=== PATIENT | male | born 1950 | race Two or more races ===

== ENCOUNTER 2025-01-18 20:52 | Inpatient (IN) | payer MEDICARE, OTHER ==
[~2025-01-18] VITALS: Ht 162.6 cm; Wt 69.9 kg
--- NOTE | 2025-01-18 21:35 | DVH ---
CLINICAL HISTORY: sob TECHNIQUE: Single view of the chest was obtained. COMPARISON: None FINDINGS: The heart size is normal. There is diffuse interstitial thickening throughout both lungs. IMPRESSION: Diffuse interstitial thickening throughout both lungs, likely at least in part representing fibrosis. Superimposed vascular congestion or other processes are not excluded.
--- NOTE | 2025-01-18 21:50 | ED.PDOC ---
History of Present Illness HPI Comments HPI: 74 y/o M, with PMhx of HTN, HLD, and colon cancer presents to the ED for CC of abdominal pain. Patient states, that he has been experiencing worsening abdominal pain and distension which has now caused him to develop symptoms of shortness of breath onset, [id number]. Patient reports, that abdominal distension is causing pressure onto his chest. Patient denies chest pain, palpations, nausea, vomiting, or diarrhea. No other symptoms or modifying factors are present at this time. Initial Vitals BP: HR: RR: O2: Temp: Past Medical History: HTN, COLON CANCER, HLD Past Surgical History: exploratory laparotomy Social History: Denies ETOH, smoking, and drug use. Medications: DENIES Allergies: JULIO wright: Chronic abdominal bloating, shortness of breath HPI: Poor Historian. REVIEW OF SYSTEMS: CONSTITUTIONAL: Denies acute: fever, diaphoresis, chills, generalized weakness. HEAD: Denies acute: headache, photophobia Eyes: Denies acute: Double vision, vision loss, eye pain, eye discharge. EARS: Denies acute: tinnitus, hearing loss, ear discharge, ear pain, THROAT: Denies acute: sore throat, swelling, difficulty swallowing , pain with swallowing, change in voice. NECK: Denies acute: neck pain, neck swelling, stiff neck. HEART: Denies acute : chest pain, palpitations, LUNGS: Denies acute: , wheezing, cough, hemoptysis ABDOMEN: Denies acute: abdominal pain, Nausea, Vomiting, diarrhea, melena , hematemesis, hematochezia SKIN: Denies acute: rash, redness, lesions, itchiness. EXTREMITIES: Denies acute: calf pain, numbness, tingling, weakness, denies pain in extremity. Denies acute: Low back pain. Neuro: Denies acute: focal neurological deficit, motor or sensory focal neurological deficit, tremors, seizure like activity, confusion, dizziness, change in mental status, loss of bowel or bladder function, cauda equina like symptoms. : Denies acute: dysuria, hematuria, flank pain, increase in urinary frequency. PSYCH: Denies acute: hallucination, suicidal ideation, homicidal ideation. PHYSICAL EXAM: General: ---no-----acute distress, awake and alert. Head: normocephalic, atraumatic. Neck: supple, trachea is midline, no swelling. Throat: Normal phonation. Eyes:, no erythema, no purulent discharge, no proptosis, no icterus. Heart: regular rate, regular rhythm, no significant murmur appreciated. Lungs: no apparent respiratory distress, Able to speak in full sentences. No wheezing, no rhonchi, no crackles. No stridors Clear to auscultation bilaterally. Abdomen: non tender to palpation, non distended, soft, no guarding, no rebound, + bowel sounds. Neuro: Awake, Alert, oriented to name, self, situation, follows commands GCS=15. Speech is normal. Skin: no petechia, no purpura, no cyanosis, non-pale, not jaundice. Lower extremities: --no - Pitting edema no deformity, no focal swelling, no calf TTP. Makes eye contact. moves all four extremities. Face: no apparent facial droop. Ambulating in the ED independently. ED COURSE: DISCLAIMER: This medical document was created using an electronic medical record system with voice recognition software and computerized dictation system. Although this document has been carefully reviewed, there might still be some phonetic and typographical errors. Occasional wrong-word or "sound-alike" substitutions may have occurred due to the inherent limitations of voice recognition software. These areas are purely typographical due to imperfections of the software programs and do not reflect any compromise in the patient's medical care. Please read the chart carefully and recognize, using context, where these substitutions have occurred. Chief Complaint: Shortness of Breath Time Seen by MD: 21:30 Reviewed Notes: Nurses Notes, Medications, Allergies Allergies: Coded Allergies: NO KNOWN ALLERGIES (Unverified , 01/18/25) Information Source: Patient Mode of Arrival: Ambulatory Severity: Moderate Timing: Days Duration: Since onset Prehospital treatment: None Was a procedure done? Was a procedure done?: No Differential Dx Considerations may include: DDx include ACS, unstable angina, anxiety, PE, pneumothroax, neoplasm, cardiac ischemia, COPD, asthma, CHF, pleural effusion, tobacco abuse, pneumonia, hypoxia, hypercapnia, anemia., infection/sepsis., pulmonary edema. Asthma, Cardiac tamponade, infection. X-Ray, Labs, Meds, VS Vital Signs Date Time Temp Pulse Resp B/P (MAP) Pulse Ox O2 Delivery O2 Flow Rate FiO2 01/18/25 21:08 104 01/18/25 21:01 97.2 101 18 134/72 94 97.2 Lab Test 01/18/25 22:58 01/18/25 22:32 01/18/25 21:38 01/18/25 21:20 Range/Units Blood Gas Specimen Type Arterial Blood Gas Sample Site Right radial Blood Gas Patient Temperature 37.0 Arterial Blood Date Drawn [id number] Arterial Blood pH 7.427 7.350-7.450 Arterial Blood Partial Pressure CO2 37.5 35.0-48.0 mmHg Arterial Blood Partial Pressure O2 63.2 L 83.0-108.0 mmHg Arterial Blood HCO3 24.2 21.0-28.0 mmol/L Arterial Blood Oxygen Saturation 93.5 L 94.0-98.0 % Arterial Blood Base Excess 0.1 -2.0-3.0 mmol/L Arterial Blood Oxyhemoglobin 91.6 L 94.0-98.0 % Arterial Blood Carboxyhemoglobin 0.6 0.5-1.5 % Arterial Blood Methemoglobin 1.4 0.0-1.5 % Nikunj Test Modified Blood Gas Total Hemoglobin 15.80 13.5-17.5 g/dL Blood Gas Modality Room air FiO2 % 21.0 Troponin I High Sensitivity < 3 L < 3 L </=54 ng/L White Blood Count 12.5 H 4.4-10.8 10^3/uL Red Blood Count 5.47 4.5-5.90 10^6/uL Hemoglobin 15.6 13.5-17.5 g/dL Hematocrit 47.4 41.0-53.0 % Mean Corpuscular Volume 86.6 80.0-100.0 fL Mean Corpuscular Hemoglobin 28.6 28.0-32.0 pg Mean Corpuscular Hemoglobin Concent 33.0 32.0-36.0 g/dL Red Cell Distribution Width 15.9 H 11.8-14.3 % Platelet Count 209 140-450 10^3/uL Mean Platelet Volume 8.8 6.9-10.8 fL Neutrophils (%) (Auto) 65.5 37.0-80.0 % Lymphocytes (%) (Auto) 21.4 10.0-50.0 % Monocytes (%) (Auto) 7.8 0.0-12.0 % Eosinophils (%) (Auto) 5.0 0.0-7.0 % Basophils (%) (Auto) 0.3 0.0-2.0 % Neutrophils # (Auto) 8.2 1.6-8.6 10 ^3/uL Lymphocytes # (Auto) 2.7 0.4-5.4 10 ^3/uL Monocytes # (Auto) 1.0 0-1.3 10 ^3/uL Eosinophils # (Auto) 0.6 0-0.8 10 ^3/uL Basophils # (Auto) 0 0-0.2 10 ^3/uL Nucleated Red Blood Cells 0.0 % D-Dimer, Quantitative 0.31 0.0-0.49 mg/L FEU Sodium Level 140 136-145 mmol/L Potassium Level 4.6 3.5-5.1 mmol/L Chloride Level 104 98-107 mmol/L Carbon Dioxide Level 29 20-31 mmol/L Anion Gap 7 5-15 Blood Urea Nitrogen 16 9-23 mg/dL Creatinine 1.17 0.700-1.30 mg/dL Glomerular Filtration Rate Calc 65 >90 mL/min BUN/Creatinine Ratio 13.7 10.0-20.0 Serum Glucose 138 H 74-106 mg/dL Lactic Acid Level 1.2 0.4-2.0 mmol/L Calcium Level 9.5 8.7-10.4 mg/dL Total Bilirubin 0.5 0.2-1.0 mg/dL Aspartate Amino Transferase (AST) 21 13-40 U/L Alanine Aminotransferase (ALT) 32 7-40 U/L Alkaline Phosphatase 113 46-116 U/L B-Type Natriuretic Peptide 11.96 0-100 pg/mL Total Protein 7.2 5.7-8.2 g/dL Albumin 4.2 3.2-4.8 g/dL Urine Color Yellow Yellow Urine Clarity Clear Clear Urine pH 5.0 5.0-9.0 Urine Specific [place] 1.030 1.001-1.035 Urine Protein Trace H Negative Urine Ketones Negative Negative Urine Blood Negative Negative /uL Urine Nitrite Negative Negative Urine Bilirubin Negative Negative Urine Urobilinogen 2 H Negative mg/dL Urine Leukocyte Esterase Negative Negative /uL Urine RBC 7 0 - 3 /hpf Urine Microscopic WBC 2 0-3 /HPF Urine Squamous Epithelial Cells None seen <5 /hpf Urine Bacteria None seen None Seen /hpf Urine Mucus Few None Seen Urine Sperm Present None Seen /hpf Urine Glucose Normal Normal mg/dL [address] [address] Ph: [phone] DIAGNOSTIC IMAGING Diagnostic Imaging Report : [id number] Signed PATIENT: REGINE WRIGHT ACCT: [id number] UNIT: [id number] : 1950 LOC: ER ROOM / BED: / AGE / SEX: 74 / M ADM STATUS: REG ER SERVICE 18 ORDERING PHYSICIAN: CYDNEY RUBIN DO PROCEDURE(s): CXRP - CHEST PORTABLE REASON: sob ORDER NUMBER(s): [id number], ACCESSION NUMBER(s): [id number] CLINICAL HISTORY: sob TECHNIQUE: Single view of the chest was obtained. COMPARISON: None FINDINGS: The heart size is normal. There is diffuse interstitial thickening throughout both lungs. IMPRESSION: Diffuse interstitial thickening throughout both lungs, likely at least in part representing fibrosis. Superimposed vascular congestion or other processes are not excluded. ATED BY: MYRNA MACDONALD MD DICTATED DATE/TIME: 01/18/252132 SIGNED BY: MYRNA MACDONALD MD SIGNED DATE/TIME: 01/18/252132 CC: [place] [address] Ph: [phone] DIAGNOSTIC IMAGING Diagnostic Imaging Report : [id number] Signed PATIENT: REGINE WRIGHT ACCT: [id number] UNIT: [id number] : 1950 LOC: OVERFLOW ROOM / BED: 1010-ER / A AGE / SEX: 74 / M ADM STATUS: ADM IN SERVICE 0003 ORDERING PHYSICIAN: CYDNEY RUBIN DO PROCEDURE(s): ABPL - CT AB PEL WO CON-NO ORAL OR IV REASON: h/o colon cancer, bloating ORDER NUMBER(s): [id number], ACCESSION NUMBER(s): [id number] Exam: CT CT AB PEL WO CON-NO ORAL OR IV History: h/o colon cancer, bloating Comparison Study: None Technique: Multidetector spiral CT of the abdomen was performed from lung bases to pubic symphysis. Imaging was performed without IV contrast. Axial, coronal and sagittal multiplanar reformats were obtained from the axial data set by the technologist. Radiation Dose : 1. Abdomen/Pelvis: CTDIvol 5.84 mGy, DLP 362.57 mGy*cm. Findings: Evaluation of solid organs is limited due to lack of intravenous contrast use. Lung Bases: Extensive bibasilar fibrotic change and septal thickening with atelectasis and moderate patchy infiltrate. Normal heart size. No pleural or pericardial effusion. Liver: The liver is normal in size. No focal lesions. Gallbladder and Biliary Tree: Unremarkable Spleen: Unremarkable Pancreas: The pancreas is grossly normal in appearance. Adrenal Glands: Unremarkable Kidneys: Kidneys are grossly normal without calculi or hydronephrosis. Bladder: Grossly unremarkable for degree of distention. Bowel: Moderate hiatal hernia. The stomach is grossly normal in appearance. Small bowel and colon are normal in caliber and distribution. The appendix is normal. Ascites: Absent Lymphadenopathy: No mesenteric, retroperitoneal or periportal lymphadenopathy. Abdominal Wall and Mesentery: Unremarkable. Vasculature: The visualized abdominal aorta is mildly tortuous in its course and otherwise normal in size and caliber. Atherosclerotic vascular calcifications. Evaluation of abdominal and pelvic vessels is limited due to lack of intravenous contrast. Pelvic Organs: Unremarkable Musculoskeletal: No aggressive focal bony lesions, acute fractures or dislocation. IMPRESSION: 1. No acute abnormalities identified in the abdomen or pelvis. 2. Moderate hiatal hernia. 3. Extensive bibasilar fibrotic change and septal thickening with atelectasis and moderate patchy infiltrate. Radiation optimization: All CT scans at this facility use at least one of these dose optimization techniques: automated exposure control mA and/or kV adjustment per patient size (includes targeted exams where dose is matched to clinical indication) or iterative reconstruction. ATED BY: JOVAN JASON MD DICTATED DATE/TIME: 01/19/2551 SIGNED BY: JOVAN JASON MD SIGNED DATE/TIME: 09/18/25 0052 CC: Time of 1ST Reevaluation: 22:00 Reevaluation 1ST: Unchanged Patient Education/Counseling: Diagnosis, Treatment Family Education/Counseling: No Family Present Comments MDM: patient presented with the above HPI.----abdominal bloating causing shortness of breath--workup was initiated. patient was found with the above ment ioned diagnosis. the following medications were ordered: please refer to order lists of meds and tests obtained by myself Dr. Rubin. Patient ED course and VS have been stabilized. Patient has been reassessed in the ED and remained in a stable condition. Pertinent incidental findings were discussed with the patient and/or family. Patient/family voices understanding and is agreeable with plan. Patient has been observed in the ED adequate length of time to insure improvement/stability. Escalation of care considered: Consideration of escalation to observation or admission ABG was obtained that shows hypoxemia. Patient was ADMITTED to the medicine team for further evaluation and treatment of their presentation. All the reports of any imaging studies that were ordered by myself were reviewed by myself. SEPSIS Sepsis Screen Date sepsis recognized/suspect: Jan 18, 2025 Time Sepsis recognized/suspect: 2103 Recent Procedure: No On Antibiotic Therapy: No Respiratory Rate >20: No Heart Rate >90: Yes Temp<36 C (96.8 F) or >38.3 C: No SBP <90 or MAP <65 mmHG: No New Acute Mental Status Change: No Is the patient on CPAP, BIPAP,: No Physician Orders Direct Support Professional Home Health (01/18/25 ) Chest Portable (01/18/25 21:19) Electrocardigram (01/18/25 21:19) Electrocardigram (01/18/25 22:19) Electrocardigram (01/19/25 00:19) Abg W/ Co-Ox (01/18/25 22:50) Vital Signs Date Time Temp Pulse Resp B/P (MAP) Pulse Ox O2 Delivery O2 Flow Rate FiO2 01/18/25 21:08 104 01/18/25 21:01 97.2 101 18 134/72 94 97.2 Laboratory Tests Test 01/18/25 21:38 Lactic Acid Level 1.2 mmol/L (0.4-2.0) White Blood Count 12.5 10^3/uL (4.4-10.8) H Departure 1 Departure Time of Disposition: 23:15 Impression: Primary Impression: Hypoxemia Additional Impression: Lung infiltrate Disposition: ADMITTED INPATIENT Admit to: Tele Condition: Guarded Additional Instructions: [address] [address] Ph: [phone] DIAGNOSTIC IMAGING Diagnostic Imaging Report : [id number] Signed PATIENT: REGINE WRIGHT ACCT: [id number] UNIT: [id number] : 1950 LOC: ER ROOM / BED: / AGE / SEX: 74 / M ADM STATUS: REG ER SERVICE 18 ORDERING PHYSICIAN: CYDNEY RUBIN DO PROCEDURE(s): CXRP - CHEST PORTABLE REASON: sob ORDER NUMBER(s): [id number], ACCESSION NUMBER(s): [id number] CLINICAL HISTORY: sob TECHNIQUE: Single view of the chest was obtained. COMPARISON: None FINDINGS: The heart size is normal. There is diffuse interstitial thickening throughout both lungs. IMPRESSION: Diffuse interstitial thickening throughout both lungs, likely at least in part representing fibrosis. Superimposed vascular congestion or other processes are not excluded. ATED BY: MYNRA MACDONALD MD DICTATED DATE/TIME: 01/18/252132 SIGNED BY: MYRNA MACDONALD MD SIGNED DATE/TIME: 01/18/252132 CC: Discharged With: Self Critical Care Note Critical Care Time?: No I personally scribed for CYDNEY RUBIN DO ([email or web address]) on 01/18/25 at 21:50. Electronically submitted by Belem Justin ([email or web address]). I personally scribed for CYDNEY RUBIN DO ([email or web address]) on 01/18/25 at 21:53. Electronically submitted by Belem Justin [email or web address]). CYDNEY RUBIN DO Jan 18, 2025 21:50
[2025-01-18 22:06] LABS: Hematocrit 47.4 % (41.0-53.0); Hemoglobin 15.6 g/dL (13.5-17.5); Mean Corpuscular Hemoglobin 28.6 pg (28.0-32.0); Mean Corpuscular Volume 86.6 fL (80.0-100.0); Nucleated Red Blood Cells % 0.0 %
[2025-01-18 22:24] LABS: Alanine Aminotransferase 32 U/L (7-40); Albumin 4.2 g/dL (3.2-4.8); Alkaline Phosphatase 113 U/L (46-116); Anion Gap 7 (5-15); BUN/Creatinine Ratio 13.7 (10.0-20.0); Bilirubin, Total 0.5 mg/dL (0.2-1.0); Blood Urea Nitrogen 16 mg/dL (9-23); Calcium 9.5 mg/dL (8.7-10.4); Carbon Dioxide 29 mmol/L (20-31); Chloride 104 mmol/L (98-107); Potassium 4.6 mmol/L (3.5-5.1); Sodium 140 mmol/L (136-145); Total Protein 7.2 g/dL (5.7-8.2)
[2025-01-18 22:25] LABS: Glucose 138 mg/dL (74-106)
[2025-01-18 23:06] LABS: Base Excess 0.1 mmol/L (-2.0-3.0)
[2025-01-19] VITALS (9 sets, daily range): BP systolic 118–164; BP diastolic 70–96; PULSE 16–87; RESP 16–19; TEMP 97.6–98.7; O2SAT 93–99
[2025-01-19 00:03] LABS: Urine Protein, UAD TRACE (Negative)
[2025-01-19] MEDS: SODIUM CHLORIDE 0.9% 500 ML IV ONE ×2 (00:45→05:45)
--- NOTE | 2025-01-19 00:54 | DVH ---
Exam: CT CT AB PEL WO CON-NO ORAL OR IV History: h/o colon cancer, bloating Comparison Study: None Technique: Multidetector spiral CT of the abdomen was performed from lung bases to pubic symphysis. I maging was performed without IV contrast. Axial, coronal and sagittal multiplanar reformats were obta ined from the axial data set by the technologist. Radiation Dose : 1. Abdomen/Pelvis: CTDIvol 5.84 mGy, DLP 362.57 mGy*cm. Findings: Evaluation of solid organs is limited due to lack of intravenous contrast use. Lung Bases: Extensive bibasilar fibrotic change and septal thickening with atelectasis and moderate p atchy infiltrate. Normal heart size. No pleural or pericardial effusion. Liver: The liver is normal in size. No focal lesions. Gallbladder and Biliary Tree: Unremarkable Spleen: Unremarkable Pancreas: The pancreas is grossly normal in appearance. Adrenal Glands: Unremarkable Kidneys: Kidneys are grossly normal without calculi or hydronephrosis. Bladder: Grossly unremarkable for degree of distention. Bowel: Moderate hiatal hernia. The stomach is grossly normal in appearance. Small bowel and colon are normal in caliber and distribution. The appendix is normal. Ascites: Absent Lymphadenopathy: No mesenteric, retroperitoneal or periportal lymphadenopathy. Abdominal Wall and Mesentery: Unremarkable. Vasculature: The visualized abdominal aorta is mildly tortuous in its course and otherwise normal in size and caliber. Atherosclerotic vascular calcifications. Evaluation of abdominal and pelvic vessels is limited due to lack of intravenous contrast. Pelvic Organs: Unremarkable Musculoskeletal: No aggressive focal bony lesions, acute fractures or dislocation. IMPRESSION: 1. No acute abnormalities identified in the abdomen or pelvis. 2. Moderate hiatal hernia. 3. Extensive bibasilar fibrotic change and septal thickening with atelectasis and moderate patchy inf iltrate. Radiation optimization: All CT scans at this facility use at least one of these dose optimization roro hniques: automated exposure control mA and/or kV adjustment per patient size (includes targeted exam s where dose is matched to clinical indication) or iterative reconstruction.
[2025-01-19] MEDS ORDERED: ALBUTEROL SULF 2.5 MG/0.5ML(0.5%) NEB SOLN NEB PRN (02:45)
[2025-01-19] MEDS ORDERED: IPRATROPIUM BROM 0.5 MG/2.5ML INH SOL NEB PRN (02:45)
[2025-01-19] MEDS: AZITHROMYCIN 500MG/ 250ML 250 ML IV ONE (05:30)
--- NOTE | 2025-01-19 05:36 | DVHHPRES ---
History of Present Illness Resident Creating Document: ETTA PIMENTEL RESIDENT History of Present Illness Jerel Hook is a 74 year old male with past medical history of GERD, hypertension, colon cancer, hyperlipidemia who presented to the ED with chief complaints of abdominal bloating, pain associated with shortness of breath. Patient states that he has been excessively bloated with abdominal distention, discomfort with causes him to have shortness of breath. Patient states that he had COVID 3 weeks ago associated with pneumonia and was admitted to [facility]. Patient also complains of rectal bleeding since 2 weeks every time he has a bowel movement which is approximately 5 to 6 times a day. Who was diagnosed with colon cancer 2 years ago, and denied colon surgery and chemotherapy. Patient states he has lost weight 5 lb he is in couple of months. Patient states that he did not use home oxygen before COVID diagnosis but now is using oxygen at home. Patient is admitted for further management Past surgical history: Laparoscopy Family history: Reviewed, noncontributory Personal history: Smoked 2 pack a week but quit 3 years ago, drinks occasionally, denies drug use Lives with: Family PCP: Review of Systems Constitutional: Yes: Weakness, Other (Weight loss); No: Fever, Chills, Sweats, Malaise Eyes: No: Pain, Vision change, Conjunctivae inflammation, Eyelid inflammation, Other, Redness ENT: No: Ear pain, Ear discharge, Nose pain, Nose discharge, Nose congestion, Mouth pain, Mouth swelling, Throat pain, Throat swelling, Other Respiratory: Cough, Shortness of breath Cardiovascular: No: Chest Pain, Palpitations, Orthopnea, Paroxysmal Noc. Dyspnea, Edema, Lt Headedness, Other Gastrointestinal: Nausea, Abdominal Pain, Other (Bloating); No: Vomiting, Diarrhea, Constipation, Melena, Hematochezia Genitourinary: No Dysuria, No Frequency, No Incontinence, No Hematuria, No Retention, No Other Musculoskeletal: No: other, neck pain, shoulder pain, arm pain, back pain, hand pain, leg pain, foot pain Skin: Rash (Perianal); No: Lesions, Jaundice, Bruising, Other Neurological: No: Weakness, Numbness, Incoordination, Change in speech, Confusion, Seizures, Other Allergies: Coded Allergies: NO KNOWN ALLERGIES (Unverified , 01/18/25) Medications Current Medications Medications Dose Ordered Sig/Blanco Route Start Time Stop Time Status Last Admin Dose Admin Ipratropium Harrison 0.5 mg Q4HPRN PRN NEB 01/19/25 02:45 Albuterol 1.25 mg Q4HPRN PRN NEB 01/19/25 02:45 Pantoprazole Sodium 40 mg DAILY IV 01/19/25 10:00 Exam Vital Signs Vital Signs Date Time Temp Pulse Resp B/P (MAP) Pulse Ox O2 Delivery O2 Flow Rate FiO2 01/19/25 05:00 97.6 86 18 164/96 (118) 94 97.6 01/19/25 03:22 Room Air* 0 21 Exam General: Patient alert and oriented in person, place and time. Patient following commands. HEENT: Normocephalic, atraumatic, moist mucous membranes Respiratory/pulmonary: Clear lungs bilaterally, vesicular murmurs present in almost all lung rai, no associated crackles or wheezes. Cardiovascular: Normal heart sounds S1 and S2 with no associated murmurs Abdomen: Abdomen distended, no tenderness to palpation, Extremities: There is no peripheral edema present at the lower extremities. Peripheral Pulses: 3+ Radial (R). 3+ Radial (L). 3+ Dorsalis pedis (R). 3+ Dorsalis pedis(L) Skin: No rashes or pruritus, there is no sacral edema present at this time. Neurological: Intact cranial nerves with no focal neurologic deficits Rectal exam was deferred by patient, on examination perianal erythema noted, no external hemorrhoids, masses, visible blood were noted Labs/Xrays Labs Test 01/19/25 00:13 01/18/25 22:58 01/18/25 21:38 01/18/25 21:20 Range/Units Troponin I High Sensitivity < 3 L </=54 ng/L Blood Gas Specimen Type Arterial Blood Gas Sample Site Right radial Blood Gas Patient Temperature 37.0 Arterial Blood Date Drawn [id number] Arterial Blood pH 7.427 7.350-7.450 Arterial Blood Partial Pressure CO2 37.5 35.0-48.0 mmHg Arterial Blood Partial Pressure O2 63.2 L 83.0-108.0 mmHg Arterial Blood HCO3 24.2 21.0-28.0 mmol/L Arterial Blood Oxygen Saturation 93.5 L 94.0-98.0 % Arterial Blood Base Excess 0.1 -2.0-3.0 mmol/L Arterial Blood Oxyhemoglobin 91.6 L 94.0-98.0 % Arterial Blood Carboxyhemoglobin 0.6 0.5-1.5 % Arterial Blood Methemoglobin 1.4 0.0-1.5 % Nikunj Test Modified Blood Gas Total Hemoglobin 15.80 13.5-17.5 g/dL Blood Gas Modality Room air FiO2 % 21.0 White Blood Count 12.5 H 4.4-10.8 10^3/uL Red Blood Count 5.47 4.5-5.90 10^6/uL Hemoglobin 15.6 13.5-17.5 g/dL Hematocrit 47.4 41.0-53.0 % Mean Corpuscular Volume 86.6 80.0-100.0 fL Mean Corpuscular Hemoglobin 28.6 28.0-32.0 pg Mean Corpuscular Hemoglobin Concent 33.0 32.0-36.0 g/dL Red Cell Distribution Width 15.9 H 11.8-14.3 % Platelet Count 209 140-450 10^3/uL Mean Platelet Volume 8.8 6.9-10.8 fL Neutrophils (%) (Auto) 65.5 37.0-80.0 % Lymphocytes (%) (Auto) 21.4 10.0-50.0 % Monocytes (%) (Auto) 7.8 0.0-12.0 % Eosinophils (%) (Auto) 5.0 0.0-7.0 % Basophils (%) (Auto) 0.3 0.0-2.0 % Neutrophils # (Auto) 8.2 1.6-8.6 10 ^3/uL Lymphocytes # (Auto) 2.7 0.4-5.4 10 ^3/uL Monocytes # (Auto) 1.0 0-1.3 10 ^3/uL Eosinophils # (Auto) 0.6 0-0.8 10 ^3/uL Basophils # (Auto) 0 0-0.2 10 ^3/uL Nucleated Red Blood Cells 0.0 % D-Dimer, Quantitative 0.31 0.0-0.49 mg/L FEU Sodium Level 140 136-145 mmol/L Potassium Level 4.6 3.5-5.1 mmol/L Chloride Level 104 98-107 mmol/L Carbon Dioxide Level 29 20-31 mmol/L Anion Gap 7 5-15 Blood Urea Nitrogen 16 9-23 mg/dL Creatinine 1.17 0.700-1.30 mg/dL Glomerular Filtration Rate Calc 65 >90 mL/min BUN/Creatinine Ratio 13.7 10.0-20.0 Serum Glucose 138 H 74-106 mg/dL Lactic Acid Level 1.2 0.4-2.0 mmol/L Calcium Level 9.5 8.7-10.4 mg/dL Total Bilirubin 0.5 0.2-1.0 mg/dL Aspartate Amino Transferase (AST) 21 13-40 U/L Alanine Aminotransferase (ALT) 32 7-40 U/L Alkaline Phosphatase 113 46-116 U/L B-Type Natriuretic Peptide 11.96 0-100 pg/mL Total Protein 7.2 5.7-8.2 g/dL Albumin 4.2 3.2-4.8 g/dL Urine Color Yellow Yellow Urine Clarity Clear Clear Urine pH 5.0 5.0-9.0 Urine Specific [place] 1.030 1.001-1.035 Urine Protein Trace H Negative Urine Ketones Negative Negative Urine Blood Negative Negative /uL Urine Nitrite Negative Negative Urine Bilirubin Negative Negative Urine Urobilinogen 2 H Negative mg/dL Urine Leukocyte Esterase Negative Negative /uL Urine RBC 7 0 - 3 /hpf Urine Microscopic WBC 2 0-3 /HPF Urine Squamous Epithelial Cells None seen <5 /hpf Urine Bacteria None seen None Seen /hpf Urine Mucus Few None Seen Urine Sperm Present None Seen /hpf Urine Glucose Normal Normal mg/dL SEPSIS Sepsis Screen Date sepsis recognized/suspect: Jan 19, 2025 Time Sepsis recognized/suspect: 0309 Recent Procedure: No On Antibiotic Therapy: No Respiratory Rate >20: No Heart Rate >90: Yes Temp<36 C (96.8 F) or >38.3 C: No SBP <90 or MAP <65 mmHG: No New Acute Mental Status Change: No Is the patient on CPAP, BIPAP,: No Physician Orders Abg W/ Co-Ox (01/18/25 22:50) Admit (01/19/25 00:00) Oxygen By Nasal Cannula (01/19/25 00:00) Stat Ekg For Chest Pain (01/19/25 00:00) Notify Of Changes From Base (01/19/25 00:00) Masonry Inspector For 24 Hours (01/19/25 00:00) Emergency Dysrhythmia Protocol (01/19/25 00:00) Rhythm Strips Once Every Shift (01/19/25 00:00) Ct Ab Pel Wo Con-No Oral Or Iv (01/19/25 00:03) Ipratropium Medneb (Atrovent Medneb) (01/19/25 02:45) Albuterol Medneb (Ventolin Medneb) (01/19/25 02:45) Regular Diet (01/19/25 Breakfast) Pantoprazole (Protonix) (01/19/25 10:00) Complete Blood Count (01/19/25 05:23) Comprehensive Metabolic Panel (01/19/25 05:23) Magnesium (01/19/25 05:23) Pantoprazole (Protonix) (01/19/25 05:30) * Gi Dvh Automation Specialist (01/19/25 05:23) Npo (Nothing By Mouth) Diet (01/19/25 Breakfast) Lactic Acid W/ Reflex Order (01/19/25 05:23) Mrsa Screen (01/19/25 05:23) Blood Culture (01/19/25 05:23) Vital Signs Date Time Temp Pulse Resp B/P (MAP) Pulse Ox O2 Delivery O2 Flow Rate FiO2 01/19/25 05:00 97.6 86 18 164/96 (118) 94 97.6 01/19/25 03:22 16 16 99 Room Air* 0 21 01/19/25 03:15 98.7 87 16 162/95 95 21 98.7 01/19/25 03:08 95 Room Air* 0 21 01/19/25 03:08 95 Room Air 01/19/25 03:06 95 16 96 Room Air 01/19/25 02:58 98.7 85 16 162/95 (117) 95 98.7 Laboratory Tests Test 01/18/25 21:38 Lactic Acid Level 1.2 mmol/L (0.4-2.0) White Blood Count 12.5 10^3/uL (4.4-10.8) H Medications Medications Dose Ordered Sig/Blanco Route Start Time Stop Time Status Last Admin Dose Admin Ceftriaxone Sodium 50 ml @ 100 mls/hr ONCE ONCE IV 01/19/25 02:45 01/19/25 03:14 DC 01/19/25 03:40 100 MLS/HR Assessment/Plan Assessment/Plan Assessment and Plan # GI bleed, likely lower GI bleed IV Protonix CT abdomen pelvis GI consult Liver ultrasound Later CBC IV Fluids # sepsis due to questionable pneumonia, other causes not ruled out yet IV ceftriaxone and azithromycin IV fluids Lactic acid MRSA screen Sputum culture Blood culture # questionable Gram-positive/Gram-negative community acquired pneumonia IV antibiotic Sputum culture # history of colon cancer, per patient's history CT abdomen and pelvis GI consult # chronic hypoxic respiratory failure status post denied any infection, now developing fibrosis # interstitial lung disease, UIP pattern On 2 L of oxygen Albuterol and ipratropium p.r.n. # 1cm , pulmonary nodule, seen on 11/01/2024 CT imaging done outpatient, record brought by patient Follow up with Pulmonary outpatient 6-12 months # GERD Protonix # small hiatal hernia Protonix # ex-smoker Quit 3 years ago PPI prophylaxis: Pantoprazole DVT prophylaxis: Not indicated Goals of care addressed with the patient for more than 31 minutes: Full code status Case discussed with Dr. Hoffman , patient and nurse Plan discussed with: Patient My Orders Orders - ETTA PIMENTEL RESIDENT Procedure Category Date Status Time Ipratropium Medneb PHA 01/19/25 In Process (Atrovent Medneb) 02:45 Albuterol Medneb PHA 01/19/25 In Process (Ventolin Medneb) 02:45 Regular Diet DIET 01/19/25 Transmitted Breakfast Pantoprazole PHA 01/19/25 In Process (Protonix) 10:00 Complete Blood Count LAB 01/19/25 Transmitted 05:23 Comprehensive LAB 01/19/25 Transmitted Metabolic Panel 05:23 Magnesium LAB 01/19/25 Transmitted 05:23 Pantoprazole PHA 01/19/25 Transmitted (Protonix) 05:30 * Gi Dvh Automation Specialist CONS 01/19/25 Transmitted 05:23 Npo (Nothing By DIET 01/19/25 Transmitted Mouth) Diet Breakfast Lactic Acid W/ Reflex LAB 01/19/25 Transmitted Order 05:23 Mrsa Screen ADI 01/19/25 Uncollected 05:23 Blood Culture ADI 01/19/25 Uncollected 05:23 Date of Service: Jan 19, 2025 Billing Provider: BRENDA HOFFMAN MD Common Visit Codes: [id number] INP/OBS CARE (HIGH) Secondary Visit Codes: [id number] CARE PLAN 30 MINUTES ETTA PIMENTEL RESIDENT Jan 19, 2025 05:36
--- NOTE | 2025-01-19 06:16 | ECG ---
[facility] Test Date: 2025-01-18 Test Time: 21:08:19 Pat Name: REGINE WRIGHT Department: ED Room: 0297 B Gender: M Runner On: MELY : 1950 Requested By: CYDNEY RUBIN Order Number: [id number] Reading MD: Ricardo Rodriguez Measurements Intervals Addison Rate: 104 P: 51 SC: 167 QRS: 38 QRSD: 84 T: 1 QT: 331 QTc: 436 Interpretive Statements Sinus tachycardia Multiple ventricular premature complexes Baseline wander in lead(s) V3 Electronically Signed On 01-19-2025 16:41:22 PDT by Ricardo Rodriguez Please click the below link to view image of tracing.
[2025-01-19] MEDS: PANTOPRAZOLE 40 MG/10 ML VIAL INJ IV ONE (06:31)
[2025-01-19] MEDS ORDERED: DOXYCYCLINE 100MG/100ML 100 ML IV ONE (07:45)
--- NOTE | 2025-01-19 08:37 | DVH ---
INDICATION: gi bleed; pain TECHNIQUE: Multiple real-time sonographic images were obtained of the right upper quadrant. COMPARISON: None FINDINGS: The liver demonstrates homogenous echotexture without focal mass lesions. The liver measure s 17 cm. There is no intrahepatic or extrahepatic ductal dilatation. The common duct measures 5 mm. The gallbladder is without evidence of stone or sludge. The gallbladder wall measures 3 mm and is wi thin normal limits. The right kidney measures 10 cm. The right kidney is normal in contour, size, and shape. The echogen icity is normal. There is no hydronephrosis. The pancreas is not well visualized due to overlying bowel gas. IMPRESSION: No sonographic evidence of gallstones or acute cholecystitis.
[2025-01-19 08:41] LABS: Amphetamine Screen, Urine Neg (NEGATIVE); Barbiturate Scree,Urine Neg (NEGATIVE); Benzodiazephine Screen, Urine Neg (NEGATIVE); Cannabinoid Screen, Urine Neg (NEGATIVE); Cocaine Screen, Urine Neg (NEGATIVE); Opiate Scree,Urine Neg (NEGATIVE); Phencyclidine Screen, Urine Neg (NEGATIVE)
[2025-01-19 09:53] LABS: Hematocrit 44.0 % (41.0-53.0); Hemoglobin 15.0 g/dL (13.5-17.5); Mean Corpuscular Hemoglobin 29.4 pg (28.0-32.0); Mean Corpuscular Volume 86.3 fL (80.0-100.0); Nucleated Red Blood Cells % 0.0 %
[2025-01-19 10:06] LABS: Alanine Aminotransferase 28 U/L (7-40); Albumin 3.7 g/dL (3.2-4.8); Alkaline Phosphatase 110 U/L (46-116); Anion Gap 9 (5-15); BUN/Creatinine Ratio 15.6 (10.0-20.0); Bilirubin, Total 0.8 mg/dL (0.2-1.0); Blood Urea Nitrogen 12 mg/dL (9-23); Calcium 8.8 mg/dL (8.7-10.4); Carbon Dioxide 28 mmol/L (20-31); Chloride 101 mmol/L (98-107); Glucose 95 mg/dL (74-106); Magnesium 2.0 mg/dL (1.6-2.6); Potassium 4.2 mmol/L (3.5-5.1); Sodium 138 mmol/L (136-145); Total Protein 6.5 g/dL (5.7-8.2)
[2025-01-19 10:07] LABS: INR 0.97 (0.9-1.15); Partial Thromboplastin Time 25.6 SEC (24.5-34.5); Prothrombin Time 10.3 sec (9.3-11.8)
[2025-01-19] MEDS: PANTOPRAZOLE 40 MG/10 ML VIAL INJ IV SCH (10:19)
[2025-01-19] MEDS: DOXYCYCLINE 100MG/100ML 100 ML IV SCH (10:19)
[2025-01-19 11:37] LABS: Triglycerides 51.0 mg/dL (< 150)
[2025-01-19 11:38] LABS: Magnesium 2.0 mg/dL (1.6-2.6)
[2025-01-19 11:39] LABS: Cholesterol 130.0 mg/dL (< 200); HDL Cholesterol 52.0 mg/dL (40-59)
[2025-01-19 13:26] LABS: COVID19 ANTIGEN SOFIA FIA NEGATIVE (NEGATIVE)
--- NOTE | 2025-01-19 13:58 | DVHINCON2 ---
GI Consult Consult Note GI consult note Date of Consultation: 01/19/2025 Chief Complaint: Colon cancer and GI bleed Referring Physician: Dr. Gupta H&P: 74-year-old male admitted with complains of abdominal bloating and pain which is mostly in his lower abdomen, and also complaining of shortness of breath. Patient diagnosed with colon cancer two years ago, no surgery or chemo at this time. Patient is started with abdominal symptoms 3-4 days ago. Also having slight amount of red blood rectally for last seven days. History by patient and family member Asael by telephone conversation, who gives history of recent diagnosis of rectal fissure for patient. Patient is scheduled for PET scan on January 25. Patient recently diagnosed with COVID and hospitalized at [facility] for three weeks. No nausea or vomiting. Patient is waiting to be seen by surgeon after PET scan is completed, at this time we will make a plan for his colon cancer treatment Past Medical History: GERD, hypertension, colon cancer, hyperlipidemia Past Surgical History: Exploratory Laparoscopy Social History: Smoked 2 pack a week but quit 3 years ago, drinks occasionally, denies drug use Family History: Noncontributory Review of Systems: Constitutional: no fever, chill, weight loss HEENT: no eye pain, no hearing loss, no oral lesion, no scleral icterus Heart: no chest pain, no chest pressure Lung: no cough, no dyspnea with exertion Abdomen: see HPI Physical exam: General: NAD, AAOX3 Chest: lung rai clear to auscultation Heart: RRR, no murmur Abdomen: non-distended, mild lower abdominal tenderness to palpation, +BS Labs: Labs Test 01/19/25 12:32 01/19/25 09:20 01/19/25 00:13 01/18/25 22:58 Range/Units Influenza Type A Antigen Negative Negative Influenza Type B Antigen Negative Negative SARS-CoV-2 Antigen (Rapid) Negative NEGATIVE White Blood Count 10.2 4.4-10.8 10^3/uL Red Blood Count 5.10 4.5-5.90 10^6/uL Hemoglobin 15.0 13.5-17.5 g/dL Hematocrit 44.0 41.0-53.0 % Mean Corpuscular Volume 86.3 80.0-100.0 fL Mean Corpuscular Hemoglobin 29.4 28.0-32.0 pg Mean Corpuscular Hemoglobin Concent 34.0 32.0-36.0 g/dL Red Cell Distribution Width 15.5 H 11.8-14.3 % Platelet Count 171 140-450 10^3/uL Mean Platelet Volume 8.7 6.9-10.8 fL Neutrophils (%) (Auto) 69.8 37.0-80.0 % Lymphocytes (%) (Auto) 17.9 10.0-50.0 % Monocytes (%) (Auto) 7.2 0.0-12.0 % Eosinophils (%) (Auto) 4.0 0.0-7.0 % Basophils (%) (Auto) 1.1 0.0-2.0 % Neutrophils # (Auto) 7.1 1.6-8.6 10 ^3/uL Lymphocytes # (Auto) 1.8 0.4-5.4 10 ^3/uL Monocytes # (Auto) 0.7 0-1.3 10 ^3/uL Eosinophils # (Auto) 0.4 0-0.8 10 ^3/uL Basophils # (Auto) 0.1 0-0.2 10 ^3/uL Nucleated Red Blood Cells 0.0 % Prothrombin Time 10.3 9.3-11.8 sec Prothrombin Time INR 0.97 0.9-1.15 Activated Partial Thromboplast Time 25.6 24.5-34.5 SEC Sodium Level 138 136-145 mmol/L Potassium Level 4.2 3.5-5.1 mmol/L Chloride Level 101 98-107 mmol/L Carbon Dioxide Level 28 20-31 mmol/L Anion Gap 9 5-15 Blood Urea Nitrogen 12 9-23 mg/dL Creatinine 0.77 0.700-1.30 mg/dL Glomerular Filtration Rate Calc 93 >90 mL/min BUN/Creatinine Ratio 15.6 10.0-20.0 Serum Glucose 95 74-106 mg/dL Hemoglobin A1c 6.6 H <5.7 % A1C Lactic Acid Level 1.0 0.4-2.0 mmol/L Calcium Level 8.8 8.7-10.4 mg/dL Phosphorus Level 3.6 2.4-5.1 mg/dL Magnesium Level 2.0 1.6-2.6 mg/dL Total Bilirubin 0.8 0.2-1.0 mg/dL Aspartate Amino Transferase (AST) 19 13-40 U/L Alanine Aminotransferase (ALT) 28 7-40 U/L Alkaline Phosphatase 110 46-116 U/L Total Protein 6.5 5.7-8.2 g/dL Albumin 3.7 3.2-4.8 g/dL Triglycerides Level 51 < 150 mg/dL Cholesterol Level 130 < 200 mg/dL LDL Cholesterol 70 < 100 mg/dL HDL Cholesterol 52 40-59 mg/dL Vitamin B12 Level 392 211-911 pg/mL Vitamin D 25-Hydroxy 29.8 L 30.0-100 ng/mL Thyroid Stimulating Hormone (TSH) 1.07 0.55-4.78 uIU/mL Troponin I High Sensitivity < 3 L </=54 ng/L Blood Gas Specimen Type Arterial Blood Gas Sample Site Right radial Blood Gas Patient Temperature 37.0 Arterial Blood Date Drawn [id number] Arterial Blood pH 7.427 7.350-7.450 Arterial Blood Partial Pressure CO2 37.5 35.0-48.0 mmHg Arterial Blood Partial Pressure O2 63.2 L 83.0-108.0 mmHg Arterial Blood HCO3 24.2 21.0-28.0 mmol/L Arterial Blood Oxygen Saturation 93.5 L 94.0-98.0 % Arterial Blood Base Excess 0.1 -2.0-3.0 mmol/L Arterial Blood Oxyhemoglobin 91.6 L 94.0-98.0 % Arterial Blood Carboxyhemoglobin 0.6 0.5-1.5 % Arterial Blood Methemoglobin 1.4 0.0-1.5 % Nikunj Test Modified Blood Gas Total Hemoglobin 15.80 13.5-17.5 g/dL Blood Gas Modality Room air FiO2 % 21.0 Test 01/18/25 21:38 01/18/25 21:20 Range/Units D-Dimer, Quantitative 0.31 0.0-0.49 mg/L FEU B-Type Natriuretic Peptide 11.96 0-100 pg/mL Urine Color Yellow Yellow Urine Clarity Clear Clear Urine pH 5.0 5.0-9.0 Urine Specific [place] 1.030 1.001-1.035 Urine Protein Trace H Negative Urine Ketones Negative Negative Urine Blood Negative Negative /uL Urine Nitrite Negative Negative Urine Bilirubin Negative Negative Urine Urobilinogen 2 H Negative mg/dL Urine Leukocyte Esterase Negative Negative /uL Urine RBC 7 0 - 3 /hpf Urine Microscopic WBC 2 0-3 /HPF Urine Squamous Epithelial Cells None seen <5 /hpf Urine Bacteria None seen None Seen /hpf Urine Mucus Few None Seen Urine Sperm Present None Seen /hpf Urine Glucose Normal Normal mg/dL Urine Opiates Screen Neg NEGATIVE Urine Fentanyl Screen Neg NEGATIVE Urine Barbiturates Screen Neg NEGATIVE Urine Phencyclidine Screen Neg NEGATIVE Urine Amphetamines Screen Neg NEGATIVE Urine Benzodiazepines Screen Neg NEGATIVE Urine Cocaine Screen Neg NEGATIVE Urine Cannabinoids Screen Neg NEGATIVE Imaging: CT abdomen pelvis IMPRESSION: 1. No acute abnormalities identified in the abdomen or pelvis. 2. Moderate hiatal hernia. 3. Extensive bibasilar fibrotic change and septal thickening with atelectasis and moderate patchy infiltrate. Liver ultrasound IMPRESSION: No sonographic evidence of gallstones or acute cholecystitis. Assessment: GI bleed History of rectal fissure Sepsis possible pneumonia History of colon cancer History of GERD Hiatal hernia Plan: Discussed with Dr. Rivera CEA Recommend surgical consult, patient would like to see his surgeon on an outpatient basis Monitor labs IV antibiotic Full liquid diet advance as tolerated Supportive care recommended at this time Plan discussed with patient, family member by telephone, and RN Thank you for this consult Date of Service: Jan 19, 2025 Billing Provider: EDITH BUENO Common Visit Codes: CONSULT ONLY Consultation Codes: [id number] CONSULT <60MIN EDITH BUENO Jan 19, 2025 13:58
--- NOTE | 2025-01-19 21:33 | DVHPNRES ---
Progress Note Date Seen: Jan 19, 2025 Resident Creating Document: TAYLOR VELASQUEZ RESIDENT Medical Necessity Reason Pt with a Central, PICC or Fol: No Subjective Review of Systems Jerle Hook is a 74 year old male with past medical history of GERD, hypertension, colon cancer, hyperlipidemia who presented to the ED with chief complaints of abdominal bloating, pain associated with shortness of breath. Patient states that he has been excessively bloated with abdominal distention, discomfort with causes him to have shortness of breath. Patient states that he had COVID 3 weeks ago associated with pneumonia and was admitted to [facility]. Patient also complains of rectal bleeding since 2 weeks every time he has a bowel movement which is approximately 5 to 6 times a day. Who was diagnosed with colon cancer 2 years ago, and denied colon surgery and chemotherapy. Patient states he has lost weight 5 lb he is in couple of months. Patient states that he did not use home oxygen before COVID diagnosis but now is using oxygen at home. Patient is admitted for further management Past surgical history: Laparotomy, the patient could not mention the reason Family history: Reviewed, noncontributory Personal history: Smoked 2 pack a week but quit 3 years ago, drinks occasionally, denies drug use Lives with: Family PCP: The patient is seen and examined at bedside. Overnight events were reported. He denies any chest pain, rectal bleeding, shortness of breaths or any other complaints today. The patient has an appointment scheduled on with his oncologist for a PET scan, after talking to the nephew the patient's wants to go home to continue with his outpatient treatment and management of colon cancer. Objective vital signs Vital Sign Date Time Temp Pulse Resp B/P (MAP) Pulse Ox O2 Delivery O2 Flow Rate FiO2 01/19/25 21:00 98.0 87 19 118/76 (90) 93 98.0 01/19/25 09:30 Room Air* 0 21 Total Intake and Output 01/18/25 01/18/25 01/19/25 15:00 23:00 07:00 Intake Total 0 ml Balance 0 ml medications Current Medications Medications Dose Ordered Sig/Blanco Route Start Time Stop Time Status Last Admin Dose Admin Ipratropium [place] 0.5 mg Q4HPRN PRN NEB 01/19/25 02:45 Cancel Albuterol 1.25 mg Q4HPRN PRN NEB 01/19/25 02:45 Cancel Pantoprazole Sodium 40 mg DAILY IV 01/19/25 10:00 01/19/25 10:19 40 MG Ceftriaxone Sodium 50 ml @ 100 mls/hr DAILY@0400 IV 01/20/25 04:00 Azithromycin 250 ml @ 125 mls/hr DAILY IV 01/20/25 10:00 Doxycycline Hyclate 100 ml @ 50 mls/hr Q12H IV 01/19/25 07:45 01/19/25 19:48 50 MLS/HR Atorvastatin Calcium 40 mg HS PO 01/19/25 22:00 Future Hold Examination Pt is lying on bed General Appearance: Alert, Oriented X3, Cooperative, Mild distress HEENT: Atraumatic, Mucous membranes moist/pink Respiratory: Clear to auscultation, Normal air movement, No added sounds Cardiovascular: Regular rate, Normal S1, Normal S2, No murmurs Abdominal/ : Active bowel sounds, Soft, no distention, no tenderness, l aparotomy scar present Extremities: No edema, Normal pulses, No tenderness/swelling Skin: No Significant rash, except past surgical scars Neuro: Normal speech, sensorimotor deficits none Psych/Mental Status: Mental status NL, Mood NL Nurse was there as museum librarian during examination Rectal exam was deferred by patient, on examination perianal erythema noted, no external hemorrhoids, masses, visible blood were noted laboratory and microbiology Laboratory Tests 01/19/25 09:20 Test 01/19/25 09:20 Range/Units Serum Glucose 95 74-106 mg/dL Labs and/or images reviewed: Labs reviewed by me, Image(s) reviewed by me Problem List/Assessment/Plan Problem List/Assessment/Plan # history of colon cancer, per patient's history # GI bleed, likely lower GI bleed IV Protonix CT abdomen pelvis: No acute abnormalities identified in the abdomen or pelvis, moderate hiatal hernia Liver ultrasound: No evidence of gallstone or acute cholecystitis. GI consult:Local anorectal hemorrhoidal care,increase fluid and fiber intake. Outpatient follow up with surgeon recommended. IV Fluids IV ceftriaxone and metronidazole. The patient declined surgical treatment with possible colostomy bag, however he is scheduled with the oncologist for PET scan on 01/25/2025. Discussed with natalie Vyas about his treatment plan as per the patient's request. # chronic hypoxic respiratory failure status post denied any infection, now developing fibrosis # interstitial lung disease, UIP pattern # questionable Gram-positive/Gram-negative community acquired pneumonia # sepsis due to questionable pneumonia, other causes not ruled out yet 2 L of oxygen Breathing treatments with albuterol and ipratropium if necessary CT AP: Extensive bibasilar fibrotic change in septal thickening with atelectasis and moderate patchy infiltrate IV ceftriaxone and IV doxycycline IV fluids Lactic acid MRSA screen Sputum culture Blood culture # 1cm , pulmonary nodule, seen on 11/01/2024 CT imaging done outpatient, record brought by patient Follow up with Pulmonary outpatient 6-12 months # GERD Protonix # small hiatal hernia Protonix # ex-smoker Quit 3 years ago PPI prophylaxis: Pantoprazole DVT prophylaxis: Patient is ambulatory, not indicated Plan discussed with: Patient, Other My Orders My Orders Orders - TAYLOR VELASQUEZ Procedure Category Date Status Time Advance Diet As GIANNA 01/19/25 In Process Tolerated 12:17 TAYLOR VELASQUEZ Jan 19, 2025 21:33
[2025-01-19] MEDS ORDERED: ATORVASTATIN 20 MG TAB PO SCH (22:00)
[2025-01-20] VITALS (7 sets, daily range): BP systolic 116–127; BP diastolic 80–87; PULSE 68–92; RESP 16–20; TEMP 36.7; O2SAT 93–99
[2025-01-20] MEDS: ACETAMINOPHEN 325 MG TAB PO ONE (03:59)
[2025-01-20 07:05] LABS: Hematocrit 42.7 % (41.0-53.0); Hemoglobin 14.3 g/dL (13.5-17.5); Mean Corpuscular Hemoglobin 28.5 pg (28.0-32.0); Mean Corpuscular Volume 85.3 fL (80.0-100.0); Nucleated Red Blood Cells % 0.1 %
[2025-01-20 07:12] LABS: Anion Gap 7 (5-15); Carbon Dioxide 30 mmol/L (20-31); Chloride 100 mmol/L (98-107); Potassium 4.4 mmol/L (3.5-5.1); Sodium 137 mmol/L (136-145)
[2025-01-20 07:13] LABS: Calcium 9.0 mg/dL (8.7-10.4)
[2025-01-20 07:18] LABS: BUN/Creatinine Ratio 14.1 (10.0-20.0); Blood Urea Nitrogen 12 mg/dL (9-23); Glucose 83 mg/dL (74-106)
[2025-01-20] MEDS: AZITHROMYCIN 500MG/ 250ML 250 ML IV SCH (09:56)
[2025-01-20] MEDS: CHOLECALCIFEROL (VITD3) 1,000UNIT=25mCg TAB PO ONE (10:15)
--- NOTE | 2025-01-20 11:17 | DVHDSRES ---
Discharge Summary Date of Admission Resident Creating Document: TAYLOR VELASQUEZ Jan 19, 2025 at 00:00 Date of Discharge: Jan 20, 2025 Labs/Diagnostic Data: Laboratory Results Test 01/20/25 05:51 01/19/25 12:32 01/19/25 09:20 01/19/25 00:13 White Blood Count 8.8 10^3/uL (4.4-10.8) Red Blood Count 5.01 10^6/uL (4.5-5.90) Hemoglobin 14.3 g/dL (13.5-17.5) Hematocrit 42.7 % (41.0-53.0) Mean Corpuscular Volume 85.3 fL (80.0-100.0) Mean Corpuscular Hemoglobin 28.5 pg (28.0-32.0) Mean Corpuscular Hemoglobin Concent 33.4 g/dL (32.0-36.0) Red Cell Distribution Width 15.9 % (11.8-14.3) Platelet Count 180 10^3/uL (140-450) Mean Platelet Volume 8.5 fL (6.9-10.8) Neutrophils (%) (Auto) 60.2 % (37.0-80.0) Lymphocytes (%) (Auto) 24.0 % (10.0-50.0) Monocytes (%) (Auto) 9.2 % (0.0-12.0) Eosinophils (%) (Auto) 5.7 % (0.0-7.0) Basophils (%) (Auto) 0.9 % (0.0-2.0) Neutrophils # (Auto) 5.3 10 ^3/uL (1.6-8.6) Lymphocytes # (Auto) 2.1 10 ^3/uL (0.4-5.4) Monocytes # (Auto) 0.8 10 ^3/uL (0-1.3) Eosinophils # (Auto) 0.5 10 ^3/uL (0-0.8) Basophils # (Auto) 0.1 10 ^3/uL (0-0.2) Nucleated Red Blood Cells 0.1 % Sodium Level 137 mmol/L (136-145) Potassium Level 4.4 mmol/L (3.5-5.1) Chloride Level 100 mmol/L (98-107) Carbon Dioxide Level 30 mmol/L (20-31) Anion Gap 7 (5-15) Blood Urea Nitrogen 12 mg/dL (9-23) Creatinine 0.85 mg/dL (0.700-1.30) Glomerular Filtration Rate Calc 91 mL/min (>90) BUN/Creatinine Ratio 14.1 (10.0-20.0) Serum Glucose 83 mg/dL (74-106) Calcium Level 9.0 mg/dL (8.7-10.4) Influenza Type A Antigen Negative (Negative) Influenza Type B Antigen Negative (Negative) SARS-CoV-2 Antigen (Rapid) Negative (NEGATIVE) Prothrombin Time 10.3 sec (9.3-11.8) Prothrombin Time INR 0.97 (0.9-1.15) Activated Partial Thromboplast Time 25.6 SEC (24.5-34.5) Hemoglobin A1c 6.6 % A1C (<5.7) Lactic Acid Level 1.0 mmol/L (0.4-2.0) Phosphorus Level 3.6 mg/dL (2.4-5.1) Magnesium Level 2.0 mg/dL (1.6-2.6) Total Bilirubin 0.8 mg/dL (0.2-1.0) Aspartate Amino Transferase (AST) 19 U/L (13-40) Alanine Aminotransferase (ALT) 28 U/L (7-40) Alkaline Phosphatase 110 U/L (46-116) Total Protein 6.5 g/dL (5.7-8.2) Albumin 3.7 g/dL (3.2-4.8) Triglycerides Level 51 mg/dL (< 150) Cholesterol Level 130 mg/dL (< 200) LDL Cholesterol 70 mg/dL (< 100) HDL Cholesterol 52 mg/dL (40-59) Carcinoembryonic Antigen 2.86 ng/mL (<=5.0) Vitamin B12 Level 392 pg/mL (211-911) Vitamin D 25-Hydroxy 29.8 ng/mL (30.0-100) Thyroid Stimulating Hormone (TSH) 1.07 uIU/mL (0.55-4.78) Troponin I High Sensitivity < 3 ng/L (</=54) Test 01/18/25 22:58 01/18/25 21:38 01/18/25 21:20 Blood Gas Specimen Type Arterial Blood Gas Sample Site Right radial Blood Gas Patient Temperature 37.0 Arterial Blood Date Drawn [id number] Arterial Blood pH 7.427 (7.350-7.450) Arterial Blood Partial Pressure CO2 37.5 mmHg (35.0-48.0) Arterial Blood Partial Pressure O2 63.2 mmHg (83.0-108.0) Arterial Blood HCO3 24.2 mmol/L (21.0-28.0) Arterial Blood Oxygen Saturation 93.5 % (94.0-98.0) Arterial Blood Base Excess 0.1 mmol/L (-2.0-3.0) Arterial Blood Oxyhemoglobin 91.6 % (94.0-98.0) Arterial Blood Carboxyhemoglobin 0.6 % (0.5-1.5) Arterial Blood Methemoglobin 1.4 % (0.0-1.5) Nikunj Test Modified Blood Gas Total Hemoglobin 15.80 g/dL (13.5-17.5) Blood Gas Modality Room air FiO2 % 21.0 D-Dimer, Quantitative 0.31 mg/L FEU (0.0-0.49) B-Type Natriuretic Peptide 11.96 pg/mL (0-100) Urine Color Yellow (Yellow) Urine Clarity Clear (Clear) Urine pH 5.0 (5.0-9.0) Urine Specific [place] 1.030 (1.001-1.035) Urine Protein Trace (Negative) Urine Ketones Negative (Negative) Urine Blood Negative /uL (Negative) Urine Nitrite Negative (Negative) Urine Bilirubin Negative (Negative) Urine Urobilinogen 2 mg/dL (Negative) Urine Leukocyte Esterase Negative /uL (Negative) Urine RBC 7 /hpf (0 - 3) Urine Microscopic WBC 2 /HPF (0-3) Urine Squamous Epithelial Cells None seen /hpf (<5) Urine Bacteria None seen /hpf (None Seen) Urine Mucus Few (None Seen) Urine Sperm Present /hpf (None Seen) Urine Glucose Normal mg/dL (Normal) Urine Opiates Screen Neg (NEGATIVE) Urine Fentanyl Screen Neg (NEGATIVE) Urine Barbiturates Screen Neg (NEGATIVE) Urine Phencyclidine Screen Neg (NEGATIVE) Urine Amphetamines Screen Neg (NEGATIVE) Urine Benzodiazepines Screen Neg (NEGATIVE) Urine Cocaine Screen Neg (NEGATIVE) Urine Cannabinoids Screen Neg (NEGATIVE) Other Laboratory Tests 01/20/25 05:51 Brief Hx & Hospital Course: Jerel Hook is a 74 year old male with past medical history of GERD, hypertension, colon cancer, hyperlipidemia who presented to the ED with chief complaints of abdominal bloating, pain associated with shortness of breath. Patient states that he has been excessively bloated with abdominal distention, discomfort with causes him to have shortness of breath. Patient states that he had COVID 3 weeks ago associated with pneumonia and was admitted to [facility]. Patient also complains of rectal bleeding since 2 weeks every time he has a bowel movement which is approximately 5 to 6 times a day. Who was diagnosed with colon cancer 2 years ago, and denied colon surgery and chemotherapy. Patient states he has lost weight 5 lb he is in couple of months. Patient states that he did not use home oxygen before COVID diagnosis but now is using oxygen at home. Patient is admitted for further management Past surgical history: Laparotomy, the patient could not mention the reason Family history: Reviewed, noncontributory Personal history: Smoked 2 pack a week but quit 3 years ago, drinks occasionally, denies drug use Lives with: Family PCP: During hospitalization, the patient was treated with IV fluids, IV ceftriaxone, metronidazole and doxycycline. Imaging studies revealed a moderate hiatal hernia, extensive bibasilar fibrotic change with patchy infiltrates, and a previously identified 1 cm pulmonary nodule. Ultrasound showed no acute abnormalities. GI consultation recommended local hemorrhoidal care and increase fluid and fiber intake, with outpatient surgical follow-up. Cultures and MRSA screening were negative. The patient was maintained on 2 L oxygen which she receives at his home, and received breathing treatments as needed. He denied chest pain, rectal bleeding or shortness of breathe at the time of discharge. The patient is being discharged home in stable condition to continue outpatient management of his colon cancer. He has a PET scan scheduled with his oncologist on January 25, 2025. Protonix for GERD and hiatal hernia was continued, and use albuterol ipratropium inhaler as needed DVT prophylaxis was not indicated due to his ambulatory status. Discharge instructions include increasing fluid and fiber intake and monitoring for any worsening respiratory and gastrointestinal symptoms. Examination Pt is lying on bed General Appearance: Alert, Oriented X3, Cooperative, Mild distress HEENT: Atraumatic, Mucous membranes moist/pink Respiratory: Clear to auscultation, Normal air movement, No added sounds Cardiovascular: Regular rate, Normal S1, Normal S2, No murmurs Abdominal/ : Active bowel sounds, Soft, no distention, no tenderness, l aparotomy scar present Extremities: No edema, Normal pulses, No tenderness/swelling Skin: No Significant rash, except past surgical scars Neuro: Normal speech, sensorimotor deficits none Psych/Mental Status: Mental status NL, Mood NL Nurse was there as robotics technologist during examination Rectal exam was deferred by patient, on examination perianal erythema noted, no external hemorrhoids, masses, visible blood were noted l Operations or Procedures Liver ultrasound: No gallstones or acute cholecystitis Condition at Discharge: Stable Final Diagnosis/Problems List # history of colon cancer, per patient's history # GI bleed, likely lower GI bleed # chronic hypoxic respiratory failure status post denied any infection, developing fibrosis # interstitial lung disease, UIP pattern # questionable Gram-positive/Gram-negative community acquired pneumonia # sepsis due to questionable pneumonia, other causes not ruled out yet # pulmonary nodule, 1cm, seen on 11/01/2024 CT imaging done outpatient, record brought by patient # GERD # small hiatal hernia # ex-smoker Discharge Disposition: Home Discharge Instruct/Medications Diet: Consistent carbohydrate Activity: No Restrictions, As Tolerated Follow Up/Referral: Follow up with oncologist and surgeon in a week Medications: As per EMR Scheduled Atorvastatin Calcium (Atorvastatin Calcium), 40 MG PO HS Cholecalciferol (Vitamin D-[address]), 1,000 UNIT PO DAILY Discharge Statement: "Patient was advised to return to the ER or call 911 if any headaches, dizziness, shortness of breath, chest pain, abdominal pain, bleeding, fevers, or worsening of medical condition. Patient was counseled about treatment plan, medications, possible side effects, patientverbalized understanding. All questions were answered to the best of my ability. This discharge took greater then 30 minutes in planning, reviewing documentation, counseling the patient, and discussing with other team members." ASSESSMENT ASSESSMENT Assessment Colon cancer Gi bleeding TAYLOR VELASQUEZ RESIDENT Jan 20, 2025 11:17
[2025-01-20] MEDS ORDERED: CALC-10 PO (11:55)
[2025-01-20] MEDS ORDERED: ATOR20TA50 PO (11:55)
--- NOTE | 2025-01-20 15:09 | DVHPN2 ---
Progress Note - Dictate Date Seen: Jan 20, 2025 Medical Necessity Reason Pt with a Central, PICC or Fol: No Subjective No new complaints Patient is sleeping comfortably Multiple bowel movements recorded Hemoglobin stable at 14.3 vital signs Vital Sign Date Time Temp Pulse Resp B/P (MAP) Pulse Ox O2 Delivery O2 Flow Rate FiO2 01/20/25 15:01 36.7 01/20/25 13:00 68 18 127/87 (100) 96 01/20/25 09:30 Nasal Cannula 2.0 01/20/25 09:30 N/A Total Intake and Output 01/19/25 01/19/25 01/20/25 15:00 23:00 07:00 Intake Total 100 ml 340 ml Balance 100 ml 340 ml medications Current Medications Medications Dose Ordered Sig/Blanco Route Start Time Stop Time Status Last Admin Dose Admin Ipratropium [place] 0.5 mg Q4HPRN PRN NEB 01/19/25 02:45 Cancel Albuterol 1.25 mg Q4HPRN PRN NEB 01/19/25 02:45 Cancel Pantoprazole Sodium 40 mg DAILY IV 01/19/25 10:00 01/20/25 09:56 40 MG Ceftriaxone Sodium 50 ml @ 100 mls/hr DAILY@0400 IV 01/20/25 04:00 01/20/25 04:09 100 MLS/HR Azithromycin 250 ml @ 125 mls/hr DAILY IV 01/20/25 10:00 01/20/25 09:56 125 MLS/HR Doxycycline Hyclate 100 ml @ 50 mls/hr Q12H IV 01/19/25 07:45 01/20/25 09:56 50 MLS/HR Atorvastatin Calcium 40 mg HS PO 01/19/25 22:00 Hold Cholecalciferol 1,000 unit DAILY PO 01/21/25 10:00 objective General: NAD, AAOX3 Chest: lung rai clear to auscultation Heart: RRR, no murmur Abdomen: non-distended, mild lower abdominal tenderness to palpation, +BS laboratory and microbiology Laboratory Tests 01/20/25 05:51 Test 01/20/25 05:51 Range/Units Serum Glucose 83 74-106 mg/dL Problems(with codes): (1) Rectal bleeding (2) Hypoxemia (3) Lung infiltrate Prognosis Plan Local anorectal hemorrhoidal care Increase fluid and fiber intake Discharge planning is in progress Patient wants to see a his surgeon as an outpatient for elective colectomy Outpatient follow up with GI Services as needed Plan discussed with: Patient, Other (Alexus Wall) CRYSTAL MENDEZ MD Jan 20, 2025 15:09
[2025-01-21] MEDS ORDERED: CHOLECALCIFEROL (VITD3) 1,000UNIT=25mCg TAB PO SCH (10:00)
== END 2025-01-20 19:35 | disposition home or self-care (01) | DRG 871 ==
LOC: ER 20:52 → OVERFLOW 01-19 → WEST WING 01-19 03:25
PROVIDERS: ADMIT Student in an Organized Health Care Education/Training Program; ATTEND Student in an Organized Health Care Education/Training Program
DX: A41.59 Other Gram-negative sepsis (principal); J15.69 Pneumonia due to other Gram-negative bacteria; J15.9 Unspecified bacterial pneumonia; K92.2 Gastrointestinal hemorrhage, unspecified; J96.11 Chronic respiratory failure with hypoxia; J84.9 Interstitial pulmonary disease, unspecified; K44.9 Diaphragmatic hernia without obstruction or gangrene; K21.9 Gastro-esophageal reflux disease without esophagitis; Z20.822 Contact with and (suspected) exposure to COVID-19; E78.5 Hyperlipidemia, unspecified; I10 Essential (primary) hypertension; R91.1 Solitary pulmonary nodule; Z85.038 Personal history of other malignant neoplasm of large intestine; Z87.891 Personal history of nicotine dependence; J84.10 Pulmonary fibrosis, unspecified; Z79.899 Other long term (current) drug therapy
CPT/HCPCS: 36415; 36600; 71045; 74176; 76705; 80048; 80053; 80061; 80307; 81001; 82306; 82378; 82607; 82805; 83036; 83605; 83735; 83880; 84100; 84443; 84484; 85025; 85379; 85610; 85730; 87040; 87081; 87426; 87804; 93005; G0378; J2470

== ENCOUNTER 2025-02-02 21:35 | Emergency (ER) | payer MEDICARE ==
[~2025-02-02] VITALS: Ht 162.6 cm; Wt 63.6 kg
[2025-02-02] MEDS: ARTIFICIAL TEARS 15ml EACHEYE ONE (00:55)
[2025-02-02] MEDS: ERYTHROMY OPTH OINT 5mg/gm 1gm or 3.5gm tube OP ONE (00:55)
[~2025-02-02 21:35] MED LIST: ATOR20TA50 PO; CALC-10 PO
--- NOTE | 2025-02-02 22:18 | ED.PDOC ---
Eye-HPI HPI Comments 74 year old male with COPD on home oxygen, ?colon/anal cancer, presented to the ER with a chief complaint of bilateral eye swelling and redness for the past 3 days, patient is Czech speaking, presented with her daughter, reports that his right eye started swelling and became erythematous 3 days back, denies itching or using contact lenses, denies ophthalmoplegia. Associated symptoms include photophobia, dryness and Maria R sensation. Denies fever/chill s/headache/nausea/vomiting at this time. Denies any sick contacts. Reports matting of the eyes and yellow crusty drainage. Patient seen and examined in ER lobby. Bilateral conjunctiva are erythematous, no drainage seen at this time. Vitally stable. Chief Complaint: Eye Problem Time Seen by MD: 21:47 Reviewed Notes: Nurses Notes Allergies: Coded Allergies: NO KNOWN ALLERGIES (Unverified , 01/18/25) Home Meds Active Scripts Cholecalciferol (Vitamin D-[address]) 1,000 Unit Tab, 1000 UNIT PO DAILY for 30 Days, #30 TAB Prov:SUE WESTBROOK RESIDENT 01/20/25 Atorvastatin Calcium (ATORVASTATIN CALCIUM) 20 Mg Tab, 40 MG PO HS for 30 Days, #60 TAB Prov:SUE WESTBROOK RESIDENT 01/20/25 Information Source: Patient Mode of Arrival: Ambulatory Past Medical History PAST MEDICAL HISTORY: Denies Past Medical History (Other): COPD, colon cancer Surgical History: Denies all surgeries Constitutional: denies: chills, diaphoresis, fatigue, fever, malaise, sweats, weakness, others EENTM: reports: eye redness, photophobia, tearing, others Respiratory: denies: cough, hemoptysis, orthopnea, SOB at rest, shortness of breath, SOB with excertion, stridor, wheezing, others Cardiovascular: denies: chest pain, dizzy spells, diaphoresis, Dyspnea on exertion, edema, irregular heart beat, left arm pain, lightheadedness, palpitations, PND, syncope, others Gastrointestinal: denies: abdomen distended, abdominal pain, blood streaked bowels, constipated, diarrhea, dysphagia, difficulty swallowing, hematemesis, melena, nausea, poor appetite, poor fluid intake, rectal bleeding, rectal pain, vomiting, others Genitourinary: denies: burning, dysuria, flank pain, frequency, hematuria, incontinence, penile discharge, penile sore, pain, testicle pain, testicle swelling, urgency, others Neurological: denies: dizziness, fainting, headache, left sided numbness, left sided weakness, numbness, paresthesia, pre-existing deficit, right sided numbness, right sided weakness, seizure, speech problems, tingling, tremors, weakness, others Musculoskeletal: denies: back pain, gout, joint pain, joint swelling, muscle pain, muscle stiffness, neck pain, others Integumetry: denies: bruises, change in color, change in hair/nails, dryness, laceration, lesions, lumps, rash, wounds, others Allergic/Immunocompromised: denies: Difficulty Healing, Frequent Infections, Hives, Itching, others Hematologic/Lymphatic: denies: anemia, blood clots, easy bleeding, easy bruising, swollen glands, others Endocrine: denies: excessive hunger, excessive sweating, excessive thirst, excessive urination, flushing, intolerance to cold, intolerance to heat, unexplained weight gain, unexplained weight loss, others Psychiatric: denies: anxiety, bipolar disorder, depression, hopeless, panic disorder, schizophrenia, sleepless, suicidal, others Physical Exam General Appearance: No Apparent Distress, Normal HEENT: Pharynx Normal, TMs Normal, Other (Bilateral conjunctiva are erythematous, lower eyelids are swollen, no ophthalmoplegia, intact visual acuity and motion) Neck: Full Range of Motion, Non-Tender, Normal, Normal Inspection Respiratory: Chest Non-Tender, Lungs Clear, No Accessory Muscle Use, No Respiratory Distress, Normal Breath Sounds Cardiovascular: No Edema, No JVD, No Murmur, No Gallop, Normal Peripheral Pulses, Regular Rate/Rhythm Breast Exam: Deferred Gastrointestinal: No Organomegaly, Non Tender, No Pulsatile Mass, Normal Bowel Sounds, Soft Genitalia: Deferred Pelvic: Deferred Rectal: Deferred Extremities: No calf tenderness, Normal capillary refill, Normal inspection, Normal range of motion, Non-tender, No pedal edema Musculoskeletal : Apperance: Normal Neurologic: Alert, director of early childhood education II-XII nml as Tested, No Motor Deficits, Normal Affect, Normal Mood, No Sensory Deficits Cerebellar Function: Normal Reflexes: Normal Skin: Dry, Normal Color, Warm Lymphatic: No Adenopathy Was a procedure done? Was a procedure done?: No EENT DIFF Eye: Chalazion, Conjunctivitis, Allergic, Bacterial, Corneal Ulceration, Iritis/Uveitis, Periorbital Cellulits X-Ray, Labs, Meds, VS Vital Signs Date Time Temp Pulse Resp B/P (MAP) Pulse Ox O2 Delivery O2 Flow Rate FiO2 02/02/25 21:37 98.1 92 16 108/82 99 98.1 Lab Test 02/02/25 22:32 Range/Units White Blood Count 11.2 H 4.4-10.8 10^3/uL Red Blood Count 5.21 4.5-5.90 10^6/uL Hemoglobin 15.1 13.5-17.5 g/dL Hematocrit 44.9 41.0-53.0 % Mean Corpuscular Volume 86.1 80.0-100.0 fL Mean Corpuscular Hemoglobin 28.9 28.0-32.0 pg Mean Corpuscular Hemoglobin Concent 33.6 32.0-36.0 g/dL Red Cell Distribution Width 16.3 H 11.8-14.3 % Platelet Count 305 140-450 10^3/uL Mean Platelet Volume 8.2 6.9-10.8 fL Neutrophils (%) (Auto) 66.0 37.0-80.0 % Lymphocytes (%) (Auto) 22.6 10.0-50.0 % Monocytes (%) (Auto) 8.4 0.0-12.0 % Eosinophils (%) (Auto) 2.0 0.0-7.0 % Basophils (%) (Auto) 1.0 0.0-2.0 % Neutrophils # (Auto) 7.4 1.6-8.6 10 ^3/uL Lymphocytes # (Auto) 2.5 0.4-5.4 10 ^3/uL Monocytes # (Auto) 0.9 0-1.3 10 ^3/uL Eosinophils # (Auto) 0.2 0-0.8 10 ^3/uL Basophils # (Auto) 0.1 0-0.2 10 ^3/uL Nucleated Red Blood Cells 0.0 % X-Ray, Labs, Meds, VS Comment CBC unremarkable with no left shift Time of 1ST Reevaluation: 23:00 Reevaluation 1ST: Improved Consultation: PCP, Other (Aids Counselor) Patient Education/Counseling: Diagnosis, Treatment, Prognosis, Need For Follow Up Family Education/Counseling: Diagnosis, Treatment, Prognosis, Need For Follow Up SEPSIS Sepsis Screen Date sepsis recognized/suspect: Feb 02, 2025 Time Sepsis recognized/suspect: 2139 Recent Procedure: No Respiratory Rate >20: No Heart Rate >90: No Temp<36 C (96.8 F) or >38.3 C: No SBP <90 or MAP <65 mmHG: No New Acute Mental Status Change: No Is the patient on CPAP, BIPAP,: No Physician Orders Complete Blood Count (02/02/25 22:17) Erythromy Opth Oint 5mg/Gm 1gm (02/02/25 22:30) Vital Signs Date Time Temp Pulse Resp B/P (MAP) Pulse Ox O2 Delivery O2 Flow Rate FiO2 02/02/25 21:37 98.1 92 16 108/82 99 98.1 Laboratory Tests Test 02/02/25 22:32 White Blood Count 11.2 10^3/uL (4.4-10.8) H Departure 1 Departure Time of Disposition: 00:00 Impression: Primary Impression: Bacterial conjunctivitis of both eyes Disposition: 01 HOME / SELF CARE / HOMELESS Condition: Stable Additional Instructions: Erythromycin ophthalmic ointment to 0.5 inch deposit inside the lower lid, 4 times daily for 5 days to the affected eye In case of worsening symptoms, pain with eye movement, fever or chills, persistent increasing drainage or discharge, please let her back to the ER Follow up with the certified nursing attendant within the next 3 days Follow up with primary care physician within the next 3 days Discharged With: Self Critical Care Note Critical Care Time?: No Stability Stability form required: ABDELRAHMAN Wheeler RESIDENT Feb 02, 2025 22:18
[2025-02-02 22:42] LABS: Hematocrit 44.9 % (41.0-53.0); Hemoglobin 15.1 g/dL (13.5-17.5); Mean Corpuscular Hemoglobin 28.9 pg (28.0-32.0); Mean Corpuscular Volume 86.1 fL (80.0-100.0); Nucleated Red Blood Cells % 0.0 %
[2025-02-02] MEDS ORDERED: ARTISOL13 EACHEYE (22:57)
[2025-02-02] MEDS ORDERED: ERY05OO OP (22:57)
[2025-02-03 00:48] VITALS: BP 135/80; TEMP 97.9
[2025-02-03 00:58] VITALS: PULSE 85; RESP 19; O2SAT 93
== END 2025-02-03 01:01 | disposition home or self-care (01) ==
LOC: ER 21:35
DX: H10.89 Other conjunctivitis (principal); J44.9 Chronic obstructive pulmonary disease, unspecified; Z79.899 Other long term (current) drug therapy; Z99.81 Dependence on supplemental oxygen; Z85.038 Personal history of other malignant neoplasm of large intestine
CPT/HCPCS: 36415; 85025

== ENCOUNTER 2025-04-20 14:43 | Inpatient (IN) | payer MEDICARE ==
[~2025-04-20] VITALS: Ht 162.6 cm; Wt 64.5 kg
[~2025-04-20 14:43] MED LIST changes: +ARTISOL13 EACHEYE; +ERY05OO OP
--- NOTE | 2025-04-20 15:15 | ED.PDOC ---
GI ASSESSMENT HPI Comments 74 year old male with PMHx of gastritis, hyperlipidemia, and colon cancer presents to the emergency department for chief complaint of abdominal pain onset one month ago. In the ED, Pt reports blood in the stool, pain during bowel movement, and rates current pain 8/10. Pt denies associated symptoms of nausea, diarrhea, vomiting, or fever and vitals are otherwise stable. Pt denies any other associated symptoms. Chief Complaint: Abdominal Pain Time Seen by MD: 15:05 Reviewed Notes: Nurses Notes Allergies: Coded Allergies: NO KNOWN ALLERGIES (Unverified , 01/18/25) Home Meds Active Scripts Artificial Tear Solution (ARTIFICIAL TEARS) Tears Tessie, 1 DROP EACHEYE QID for 5 Days, #15 ML 0 Refills Prov:ABDELRAHMAN NATH RESIDENT 02/02/25 Erythromycin (Erythromycin) 5 Mg/Gm Oin, 1 MG OP QID for 5 Days, #3 OIN Prov:ABDELRAHMAN NATH RESIDENT 02/02/25 Cholecalciferol (Vitamin D-[address]) 1,000 Unit Tab, 1000 UNIT PO DAILY for 30 Days, #30 TAB Prov:SUE WESTBROOK RESIDENT 01/20/25 Atorvastatin Calcium (ATORVASTATIN CALCIUM) 20 Mg Tab, 40 MG PO HS for 30 Days, #60 TAB Prov:SUE WESTBROOK RESIDENT 01/20/25 Information Source: Patient, Relative (Child) Mode of Arrival: Ambulatory Timing: Weeks Duration: Since onset Prehospital treatment: None Quality: Aching Vomitus: Bloody Severity: Moderate Recent: None Recent Hx of: None Pain Location: Diffuse Modifying Factors: Nothing Associated sign and symptoms: Blood in Stool Past Medical History PAST MEDICAL HISTORY: Denies Surgical History: Denies all surgeries Family History Family History: Reviewed,noncontributory to illness, No family hx of Cancer, No family hx of DM, No family hx of Heart ramses, No family hx of HTN, No family hx ofKidney ramses, No family hx of Liver ramses, No family hx of Lung ramses, No family hx of Stroke Social History Smoker: Non-Smoker, Quit Less Than 1 Year Alcohol: Denies ETOH Use Drugs: Denies Drug Use Lives In: Home Constitutional: denies: chills, diaphoresis, fatigue, fever, malaise, sweats, weakness, others EENTM: denies: blurred vision, double vision, ear bleeding, ear discharge, ear drainage, ear pain, ear ringing, eye pain, eye redness, hearing loss, mouth pain, mouth swelling, nasal discharge, nose bleeding, nose congestion, nose pain, photophobia, tearing, throat pain, throat swelling, voice changes, others Respiratory: denies: cough, hemoptysis, orthopnea, SOB at rest, shortness of breath, SOB with excertion, stridor, wheezing, others Cardiovascular: denies: chest pain, dizzy spells, diaphoresis, Dyspnea on exertion, edema, irregular heart beat, left arm pain, lightheadedness, palpitations, PND, syncope, others Gastrointestinal: reports: abdominal pain, blood streaked bowels; denies: abdomen distended, constipated, diarrhea, dysphagia, difficulty swallowing, hematemesis, melena, nausea, poor appetite, poor fluid intake, rectal bleeding, rectal pain, vomiting, others Genitourinary: denies: burning, dysuria, flank pain, frequency, hematuria, incontinence, penile discharge, penile sore, pain, testicle pain, testicle swelling, urgency, others Neurological: denies: dizziness, fainting, headache, left sided numbness, left sided weakness, numbness, paresthesia, pre-existing deficit, right sided numbness, right sided weakness, seizure, speech problems, tingling, tremors, weakness, others Musculoskeletal: denies: back pain, gout, joint pain, joint swelling, muscle pain, muscle stiffness, neck pain, others Integumetry: denies: bruises, change in color, change in hair/nails, dryness, laceration, lesions, lumps, rash, wounds, others Allergic/Immunocompromised: denies: Difficulty Healing, Frequent Infections, Hives, Itching, others Hematologic/Lymphatic: denies: anemia, blood clots, easy bleeding, easy bruising, swollen glands, others Endocrine: denies: excessive hunger, excessive sweating, excessive thirst, excessive urination, flushing, intolerance to cold, intolerance to heat, unexplained weight gain, unexplained weight loss, others Psychiatric: denies: anxiety, bipolar disorder, depression, hopeless, panic disorder, schizophrenia, sleepless, suicidal, others All Other Systems: Reviewed and Negative Physical Exam General Appearance: Mild Distress HEENT: Normal ENT Inspection, Pharynx Normal, TMs Normal Neck: Full Range of Motion, Non-Tender, Normal, Normal Inspection Respiratory: Chest Non-Tender, Lungs Clear, No Accessory Muscle Use, No Respiratory Distress, Normal Breath Sounds Cardiovascular: No Edema, No JVD, No Murmur, No Gallop, Normal Peripheral Pulses, Regular Rate/Rhythm Breast Exam: Deferred Gastrointestinal: No Organomegaly, Non Tender, No Pulsatile Mass, Normal Bowel Sounds, Soft Genitalia: Deferred Pelvic: Deferred Rectal: Deferred Extremities: No calf tenderness, Normal capillary refill, Normal inspection, Normal range of motion, Non-tender, No pedal edema Musculoskeletal : Apperance: Normal Neurologic: Alert, catering staff member II-XII nml as Tested, No Motor Deficits, Normal Affect, Normal Mood, No Sensory Deficits Cerebellar Function: Normal Reflexes: Normal Skin: Dry, Normal Color, Warm Lymphatic: No Adenopathy EKG EKG : Pulse Rate (adult): 93 Cardiac Rhythm: NSR Was a procedure done? Was a procedure done?: No GI differential Dx Differential Diagnosis: Diverticular disease, Gastritis/PUD, Gastroenteritis, Inflammatory BD, UTI, Other (Lower GI bleed, anal neoplasm) X-Ray, Labs, Meds, VS Vital Signs Date Time Temp Pulse Resp B/P (MAP) Pulse Ox O2 Delivery O2 Flow Rate FiO2 04/20/25 16:38 98.8 80 14 100/70 (80) 94 98.8 04/20/25 15:15 93 04/20/25 14:53 93 04/20/25 14:45 98.5 99 20 128/87 91 98.5 Lab Test 04/20/25 16:44 04/20/25 15:19 Range/Units Urine Color Yellow Yellow Urine Clarity Clear Clear Urine pH 6.0 5.0-9.0 Urine Specific [place] 1.032 1.001-1.035 Urine Protein 1+ H Negative Urine Ketones Negative Negative Urine Blood Negative Negative /uL Urine Nitrite Negative Negative Urine Bilirubin Negative Negative Urine Urobilinogen 2 H Negative mg/dL Urine Leukocyte Esterase Negative Negative /uL Urine RBC 2 0 - 3 /hpf Urine Microscopic WBC 1 0-3 /HPF Urine Squamous Epithelial Cells Few <5 /hpf Urine Bacteria Few H None Seen /hpf Urine Mucus Few None Seen Urine Sperm Present None Seen /hpf Urine Glucose Normal Normal mg/dL White Blood Count 10.8 4.4-10.8 10^3/uL Red Blood Count 4.99 4.5-5.90 10^6/uL Hemoglobin 14.7 13.5-17.5 g/dL Hematocrit 43.5 41.0-53.0 % Mean Corpuscular Volume 87.1 80.0-100.0 fL Mean Corpuscular Hemoglobin 29.5 28.0-32.0 pg Mean Corpuscular Hemoglobin Concent 33.9 32.0-36.0 g/dL Red Cell Distribution Width 15.3 H 11.8-14.3 % Platelet Count 266 140-450 10^3/uL Mean Platelet Volume 8.6 6.9-10.8 fL Neutrophils (%) (Auto) 65.0 37.0-80.0 % Lymphocytes (%) (Auto) 20.4 10.0-50.0 % Monocytes (%) (Auto) 10.4 0.0-12.0 % Eosinophils (%) (Auto) 3.0 0.0-7.0 % Basophils (%) (Auto) 1.2 0.0-2.0 % Neutrophils # (Auto) 7.0 1.6-8.6 10 ^3/uL Lymphocytes # (Auto) 2.2 0.4-5.4 10 ^3/uL Monocytes # (Auto) 1.1 0-1.3 10 ^3/uL Eosinophils # (Auto) 0.3 0-0.8 10 ^3/uL Basophils # (Auto) 0.1 0-0.2 10 ^3/uL Nucleated Red Blood Cells 0.0 % Sodium Level 142 136-145 mmol/L Potassium Level 3.8 3.5-5.1 mmol/L Chloride Level 103 98-107 mmol/L Carbon Dioxide Level 29 20-31 mmol/L Anion Gap 10 5-15 Blood Urea Nitrogen 12 9-23 mg/dL Creatinine 0.83 0.700-1.30 mg/dL Glomerular Filtration Rate Calc 91 >90 mL/min BUN/Creatinine Ratio 14.5 10.0-20.0 Serum Glucose 127 H 74-106 mg/dL Calcium Level 9.5 8.7-10.4 mg/dL CAT scan of the abdomen and pelvis shows: IMPRESSION: Rectal/anal wall masslike thickening with luminal narrowing. Recommend GI consultation to further evaluate exclude any rectal/ anal neoplasm Bibasilar pulmonary airspace consolidation. Bilateral pulmonary reticular changes, left lung bronchiectatic/cystic changes which appear more pronounced than on prior exam examination and can be sequela of interstitial lung disease /chronic lung disease, infectious etiology. Correlate clinically. Recommend pulmonology consultation. Dedicated CT chest also recommended to fully evaluate. Aortic atherosclerotic disease. 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 Hiatal hernia. The patient's CBC is within normal limits The chemistry panel is within normal limits The urine test is negative for any infection at this time. At this time, the patient is states that he has been already diagnosed with colon cancer and possible anal neoplasm The patient is being admitted at this time. At this time, the patient is being admitted Images Reviewed?: Images reviewed and evaluated by me Time of 1ST Reevaluation: 15:35 Reevaluation 1ST: Unchanged Time of 2ND Reevaluation: 19:01 Reevaluation 2ND: Unchanged Patient Education/Counseling: Diagnosis, Treatment, Prognosis Family Education/Counseling: Diagnosis, Treatment, Prognosis SEPSIS Sepsis Screen Date sepsis recognized/suspect: Apr 20, 2025 Time Sepsis recognized/suspect: 7 Recent Procedure: No On Antibiotic Therapy: No Respiratory Rate >20: No Heart Rate >90: No Temp<36 C (96.8 F) or >38.3 C: No SBP <90 or MAP <65 mmHG: No New Acute Mental Status Change: No Is the patient on CPAP, BIPAP,: No Physician Orders Electrocardigram (04/20/25 15:02) Ct Ab Pel With Iv Con Only (04/20/25 15:10) Heplock Iv (04/20/25 15:10) Vital Signs Date Time Temp Pulse Resp B/P (MAP) Pulse Ox O2 Delivery O2 Flow Rate FiO2 04/20/25 16:38 98.8 80 14 100/70 (80) 94 98.8 04/20/25 15:15 93 04/20/25 14:53 93 04/20/25 14:45 98.5 99 20 128/87 91 98.5 Laboratory Tests Test 04/20/25 15:19 White Blood Count 10.8 10^3/uL (4.4-10.8) Departure 1 Departure Time of Disposition: 19:01 Impression: Primary Impression: Lower GI bleed Additional Impression: Anal neoplasm Disposition: ADMITTED INPATIENT Admit to: Med Surg Condition: Fair Critical Care Note Critical Care Time?: No Stability Stability form required: Yes Unstable for transfer: ED Physician Assesment (Clinical assesment) Heart Score Heart Score: Heart Score Response (Comments) Value History N/A 0 EKG N/A 0 Age N/A 0 Risk Factors N/A 0 Troponin N/A 0 Total 0 I personally scribed for REJI PONCE MD ([email or web address]) on 04/20/25 at 15:15. Electronically submitted by Belinda Curtis ([email or web address]). REJI PONCE MD Apr 20, 2025 15:15
[2025-04-20 15:42] LABS: Hematocrit 43.5 % (41.0-53.0); Hemoglobin 14.7 g/dL (13.5-17.5); Mean Corpuscular Hemoglobin 29.5 pg (28.0-32.0); Mean Corpuscular Volume 87.1 fL (80.0-100.0); Nucleated Red Blood Cells % 0.0 %
[2025-04-20 15:50] LABS: Chloride 103 mmol/L (98-107); Potassium 3.8 mmol/L (3.5-5.1); Sodium 142 mmol/L (136-145)
[2025-04-20 15:51] LABS: Anion Gap 10 (5-15); Calcium 9.5 mg/dL (8.7-10.4); Carbon Dioxide 29 mmol/L (20-31)
[2025-04-20 15:56] LABS: BUN/Creatinine Ratio 14.5 (10.0-20.0); Blood Urea Nitrogen 12 mg/dL (9-23)
[2025-04-20 16:01] LABS: Glucose 127 mg/dL (74-106)
[2025-04-20 17:12] LABS: Urine Protein, UAD 1+ (Negative)
[2025-04-20] MEDS: IOHEXOL 300 MG/ML 100ML BOTTLE IJ ONE ×2 (17:36)
--- NOTE | 2025-04-20 18:23 | DVH ---
INDICATION: pain TECHNIQUE: CT axial images of the abdomen and pelvis are obtained with intravenous contrast. Coronal and sagittal reformats were obtained. Radiation Dose Information: CTDI volume is 9.13 mGy. Dose-length product is 470.6 mGy*cm COMPARISON: 01/19/2025 FINDINGS: Bilateral pulmonary consolidation, reticular changes. Left lung bronchiectatic, cystic changes. Overall this is increased from the previous examination. Adrenal glands, spleen and pancreas unremarkable. No enhancing hepatic lesion. No CT evidence for cholelithiasis. No hydronephrosis. Moderate size hiatal hernia. Stomach is partially distended. Small bowel loops are normal in caliber. Rectal/anal wall thickening with masslike prominence and luminal narrowing, concerning for potential neoplasm. Moderate volume stool in the colon. Normal appendix. Abdominal aortic atherosclerotic disease. 70% stenosis of the infrarenal abdominal aorta with eccentric mural wall thrombus. Bladder contracted. No free pelvic fluid. No inguinal lymphadenopathy. Giox-bo-ossxabma thoracolumbar degenerative disc disease. IMPRESSION: Rectal/anal wall masslike thickening with luminal narrowing. Recommend GI consultation to further evaluate exclude any rectal/ anal neoplasm Bibasilar pulmonary airspace consolidation. Bilateral pulmonary reticular changes, left lung bronchiectatic/cystic changes which appear more pronounced than on prior exam examination and can be sequela of interstitial lung disease /chronic lung disease, infectious etiology. Correlate clinically. Recommend pulmonology consultation. Dedicated CT chest also recommended to fully evaluate. Aortic atherosclerotic disease. 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 Hiatal hernia. Other findings as described.
[2025-04-20 22:00] VITALS: BP 126/72; PULSE 76; RESP 14; O2SAT 95
[2025-04-20] MEDS ORDERED: HYDROcodone-ACET 5/325MG TAB PO PRN (22:15)
[2025-04-20] MEDS ORDERED: ACETAMINOPHEN 325 MG TAB PO PRN (22:15)
[2025-04-20] MEDS ORDERED: MORPHINE SULFATE 4 MG/ML SYR/VIAL IV PRN (22:30)
[2025-04-20] MEDS ORDERED: ALBUTEROL SULF 2.5 MG/0.5ML(0.5%) NEB SOLN NEB PRN (23:00)
[2025-04-20] MEDS ORDERED: IPRATROPIUM BROM 0.5 MG/2.5ML INH SOL NEB PRN (23:00)
[2025-04-20] MEDS: ACETAMINOPHEN 325 MG TAB PO SCH (23:39)
[2025-04-20] MEDS: SODIUM CHLORIDE 0.9% 1,000 ML IV ONE (23:40)
[2025-04-20] MEDS: ATORVASTATIN 20 MG TAB PO SCH (23:40)
[2025-04-21] VITALS (11 sets, daily range): BP systolic 102–136; BP diastolic 55–86; PULSE 66–73; RESP 16–18; TEMP 96.9–97.7; O2SAT 96–100
[2025-04-21 00:02] LABS: INR 0.98 (0.9-1.15); Partial Thromboplastin Time 26.2 SEC (24.5-34.5); Prothrombin Time 10.4 sec (9.3-11.8)
--- NOTE | 2025-04-21 00:42 | DVH ---
CHEST RADIOGRAPH INDICATION: Possible COPD TECHNIQUE: Single frontal view of the chest was obtained COMPARISON: XY CHEST PORTABLE on DOS: 01/18/25 FINDINGS: Cardiac silhouette is enlarged. Diffuse prominence of the pulmonary vasculature and interstitium. Trace left-sided pleural effusion with mild left basilar atelectasis /consolidation. IMPRESSION: Cardiomegaly with pulmonary venous congestion, edema, and trace left-sided pleural effusion.
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
[2025-04-21 04:42] LABS: COVID19 ANTIGEN SOFIA FIA NEGATIVE (NEGATIVE)
[2025-04-21 07:00] LABS: Hematocrit 41.1 % (41.0-53.0); Hemoglobin 13.8 g/dL (13.5-17.5); Mean Corpuscular Hemoglobin 29.1 pg (28.0-32.0); Mean Corpuscular Volume 86.9 fL (80.0-100.0); Nucleated Red Blood Cells % 0.0 %
[2025-04-21 07:22] LABS: Alanine Aminotransferase 12 U/L (7-40); Albumin 3.6 g/dL (3.2-4.8); Alkaline Phosphatase 112 U/L (46-116); Anion Gap 11 (5-15); BUN/Creatinine Ratio 15.4 (10.0-20.0); Blood Urea Nitrogen 12 mg/dL (9-23); Calcium 8.8 mg/dL (8.7-10.4); Carbon Dioxide 28 mmol/L (20-31); Chloride 105 mmol/L (98-107); Glucose 94 mg/dL (74-106); Potassium 3.8 mmol/L (3.5-5.1); Sodium 144 mmol/L (136-145); Total Protein 6.4 g/dL (5.7-8.2)
[2025-04-21 07:23] LABS: Bilirubin, Total 0.8 mg/dL (0.2-1.0)
[2025-04-21] MEDS: PANTOPRAZOLE 40 MG/10 ML VIAL INJ IV SCH (08:57)
--- NOTE | 2025-04-21 17:13 | DVHPNRES ---
Progress Note Date Seen: Apr 21, 2025 Resident Creating Document: TAYLOR VELASQUEZ RESIDENT Medical Necessity Reason Pt with a Central, PICC or Fol: No Subjective Review of Systems Jerel Hook is a 74 year old male with past medical history of GERD, hypertension, colon cancer, hyperlipidemia who presented to the ED with chief complaints of abdominal bloating, pain associated with shortness of breath. Patient states that he has been excessively bloated with abdominal distention, discomfort with causes him to have shortness of breath. Patient states that he had COVID 3 weeks ago associated with pneumonia and was admitted to [facility]. Patient also complains of rectal bleeding since 2 weeks every time he has a bowel movement which is approximately 5 to 6 times a day. Who was diagnosed with colon cancer 2 years ago, and denied colon surgery and chemotherapy. Patient states he has lost weight 5 lb he is in couple of months. Patient states that he did not use home oxygen before COVID diagnosis but now is using oxygen at home. Patient is admitted for further management Past surgical history: Laparotomy, the patient could not mention the reason Family history: Reviewed, noncontributory Personal history: Smoked 2 pack a week but quit 3 years ago, drinks occasionally, denies drug use Lives with: Family PCP: The patient is seen and examined at bedside. Overnight events were reported. Reports improvement in his abdominal pain and rectal bleeding. He denies any chest pain, rectal bleeding, shortness of breaths or any other complaints today. Objective vital signs Vital Sign Date Time Temp Pulse Resp B/P (MAP) Pulse Ox O2 Delivery O2 Flow Rate FiO2 04/21/25 16:40 97.0 66 16 131/78 (95) 99 97.0 04/21/25 10:00 Nasal Cannula* 2 28 Total Intake and Output 04/20/25 04/20/25 04/21/25 15:00 23:00 07:00 Intake Total 1000 ml Balance 1000 ml medications Current Medications Medications Dose Ordered Sig/Blanco Route Start Time Stop Time Status Last Admin Dose Admin Acetaminophen/ Hydrocodone Bitart 1 tab Q4HP PRN PO 04/20/25 22:15 Morphine Sulfate 2 mg Q4HPRN PRN IV 04/20/25 22:30 Acetaminophen 650 mg Q6HR PO 04/20/25 23:00 Pantoprazole Sodium 40 mg DAILY IV 04/21/25 10:00 04/21/25 08:57 40 MG Ipratropium [place] 0.5 mg Q6HPRN PRN NEB 04/20/25 23:00 Albuterol 2.5 mg Q6HPRN PRN NEB 04/20/25 23:00 Atorvastatin Calcium 20 mg HS PO 04/20/25 23:30 04/20/25 23:40 20 MG Examination Examination Pt is lying on bed General Appearance: Alert, Oriented X3, Cooperative, Mild distress HEENT: Atraumatic, Mucous membranes moist/pink Respiratory: Clear to auscultation, Normal air movement, No added sounds Cardiovascular: Regular rate, Normal S1, Normal S2, No murmurs Abdominal/ : Active bowel sounds, Soft, no distention, no tenderness, laparotomy scar present Extremities: No edema, Normal pulses, No tenderness/swelling Skin: No Significant rash, except past surgical scars Neuro: Normal speech, sensorimotor deficits none Psych/Mental Status: Mental status NL, Mood NL Nurse was there as bottoming room supervisor during examination Rectal exam was deferred by patient, on examination perianal erythema noted, no external hemorrhoids, masses, visible blood were noted laboratory and microbiology Laboratory Tests 04/21/25 06:11 Test 04/21/25 06:11 Range/Units Serum Glucose 94 74-106 mg/dL Labs and/or images reviewed: Labs reviewed by me, Image(s) reviewed by me Problem List/Assessment/Plan Problem List/Assessment/Plan # History of colon cancer # GI bleed, likely lower GI bleed IV Protonix CT abdomen pelvis: No acute abnormalities identified in the abdomen or pelvis, moderate hiatal hernia Liver ultrasound: No evidence of gallstone or acute cholecystitis. IV Fluids Pain management with Tylenol [place] morphine. The patient declined surgical treatment with possible colostomy bag. The patient follow up with GI # chronic hypoxic respiratory failure status post denied any infection, now developing fibrosis # interstitial lung disease, UIP pattern # questionable Gram-positive/Gram-negative community acquired pneumonia # sepsis due to questionable pneumonia, other causes not ruled out yet 2 L of oxygen Breathing treatments with albuterol and ipratropium if necessary CT AP: Extensive bibasilar fibrotic change in septal thickening with atelectasis and moderate patchy infiltrate IV fluids Lactic acid MRSA screen Sputum culture Blood culture Asymptomatic bacteriuria Encouraged hydration Monitor for symptoms of UTI # 1cm , pulmonary nodule, seen on 11/01/2024 CT imaging done outpatient, record brought by patient Follow up with Pulmonary outpatient 6-12 months # GERD Protonix # small hiatal hernia Protonix # ex-smoker Quit 3 years ago COPD, no exacerbation Chest x-ray Influenza COVID Nebulization p.r.n. Dyslipidemia Continue atorvastatin Hyperglycemia, rule out type 2 diabetes mellitus Follow hemoglobin A1c PUD prophylaxis: protonix 40mg DVT prophylaxis: Levonox Held due o possible GI bleed Plan discussed with: Patient (RN) My Orders My Orders Orders - TAYLOR VELASQUEZ Procedure Category Date Status Time Clear Liq Diet DIET 04/21/25 Transmitted Lunch Visit Coding STANDARD RES Billing Provider: RAMYA MCCORD MD Date of Service if different f: Apr 21, 2025 Common Visit Codes: NOT BILLABLE TAYLOR VELASQUEZ Apr 21, 2025 17:13 RAMYA MCCORD MD Apr 21, 2025 23:57
[2025-04-22] VITALS (7 sets, daily range): BP systolic 112–144; BP diastolic 52–87; PULSE 57–64; RESP 16–20; TEMP 97.6–98.2; O2SAT 95–99
[2025-04-22 07:05] LABS: Hematocrit 41.0 % (41.0-53.0); Hemoglobin 13.8 g/dL (13.5-17.5); Mean Corpuscular Hemoglobin 29.4 pg (28.0-32.0); Mean Corpuscular Volume 87.2 fL (80.0-100.0); Nucleated Red Blood Cells % 0.1 %
[2025-04-22 08:41] LABS: Alanine Aminotransferase 12 U/L (7-40); Anion Gap 11 (5-15); BUN/Creatinine Ratio 13.9 (10.0-20.0); Blood Urea Nitrogen 11 mg/dL (9-23); Calcium 9.0 mg/dL (8.7-10.4); Carbon Dioxide 28 mmol/L (20-31); Chloride 103 mmol/L (98-107); Glucose 83 mg/dL (74-106); Potassium 4.0 mmol/L (3.5-5.1); Sodium 142 mmol/L (136-145); Total Protein 6.3 g/dL (5.7-8.2)
[2025-04-22 08:42] LABS: Albumin 3.5 g/dL (3.2-4.8); Alkaline Phosphatase 116 U/L (46-116)
[2025-04-22 08:43] LABS: Bilirubin, Total 0.9 mg/dL (0.2-1.0)
[2025-04-22] MEDS ORDERED: FURO1TAB31 PO (15:17)
--- NOTE | 2025-04-22 16:56 | DVHDSRES ---
Discharge Summary Date of Admission Resident Creating Document: KEVIN HUNT RESIDENT Apr 20, 2025 at 22:15 Date of Discharge: Apr 22, 2025 Admitting Diagnosis GI bleed, intractable abdominal pain due to colorectal carcinoma Labs/Diagnostic Data: Laboratory Results Test 04/22/25 06:01 04/22/25 00:33 04/21/25 06:11 04/20/25 23:20 White Blood Count 7.9 10^3/uL (4.4-10.8) Red Blood Count 4.70 10^6/uL (4.5-5.90) Hemoglobin 13.8 g/dL (13.5-17.5) Hematocrit 41.0 % (41.0-53.0) Mean Corpuscular Volume 87.2 fL (80.0-100.0) Mean Corpuscular Hemoglobin 29.4 pg (28.0-32.0) Mean Corpuscular Hemoglobin Concent 33.7 g/dL (32.0-36.0) Red Cell Distribution Width 14.9 % (11.8-14.3) Platelet Count 235 10^3/uL (140-450) Mean Platelet Volume 9.2 fL (6.9-10.8) Neutrophils (%) (Auto) 58.0 % (37.0-80.0) Lymphocytes (%) (Auto) 24.3 % (10.0-50.0) Monocytes (%) (Auto) 10.3 % (0.0-12.0) Eosinophils (%) (Auto) 5.5 % (0.0-7.0) Basophils (%) (Auto) 1.9 % (0.0-2.0) Neutrophils # (Auto) 4.6 10 ^3/uL (1.6-8.6) Lymphocytes # (Auto) 1.9 10 ^3/uL (0.4-5.4) Monocytes # (Auto) 0.8 10 ^3/uL (0-1.3) Eosinophils # (Auto) 0.4 10 ^3/uL (0-0.8) Basophils # (Auto) 0.2 10 ^3/uL (0-0.2) Nucleated Red Blood Cells 0.1 % Sodium Level 142 mmol/L (136-145) Potassium Level 4.0 mmol/L (3.5-5.1) Chloride Level 103 mmol/L (98-107) Carbon Dioxide Level 28 mmol/L (20-31) Anion Gap 11 (5-15) Blood Urea Nitrogen 11 mg/dL (9-23) Creatinine 0.79 mg/dL (0.700-1.30) Glomerular Filtration Rate Calc 93 mL/min (>90) BUN/Creatinine Ratio 13.9 (10.0-20.0) Serum Glucose 83 mg/dL (74-106) Calcium Level 9.0 mg/dL (8.7-10.4) Total Bilirubin 0.9 mg/dL (0.2-1.0) Aspartate Amino Transferase (AST) 20 U/L (13-40) Alanine Aminotransferase (ALT) 12 U/L (7-40) Alkaline Phosphatase 116 U/L (46-116) Total Protein 6.3 g/dL (5.7-8.2) Albumin 3.5 g/dL (3.2-4.8) Influenza Type A Antigen Negative (Negative) Influenza Type B Antigen Negative (Negative) Prothrombin Time 10.4 sec (9.3-11.8) Prothrombin Time INR 0.98 (0.9-1.15) Activated Partial Thromboplast Time 26.2 SEC (24.5-34.5) Test 04/20/25 16:44 04/20/25 15:19 04/20/25 03:35 Urine Color Yellow (Yellow) Urine Clarity Clear (Clear) Urine pH 6.0 (5.0-9.0) Urine Specific [place] 1.032 (1.001-1.035) Urine Protein 1+ (Negative) Urine Ketones Negative (Negative) Urine Blood Negative /uL (Negative) Urine Nitrite Negative (Negative) Urine Bilirubin Negative (Negative) Urine Urobilinogen 2 mg/dL (Negative) Urine Leukocyte Esterase Negative /uL (Negative) Urine RBC 2 /hpf (0 - 3) Urine Microscopic WBC 1 /HPF (0-3) Urine Squamous Epithelial Cells Few /hpf (<5) Urine Bacteria Few /hpf (None Seen) Urine Mucus Few (None Seen) Urine Sperm Present /hpf (None Seen) Urine Glucose Normal mg/dL (Normal) Hemoglobin A1c 6.2 % A1C (<5.7) SARS-CoV-2 Antigen (Rapid) Negative (NEGATIVE) Other Laboratory Tests 04/22/25 06:01 Brief Hx & Hospital Course: Jerel Hook is a 74 year old male with past medical history of GERD, hypertension, colon cancer, hyperlipidemia who presented to the ED with chief complaints of abdominal bloating, pain associated with shortness of breath. Patient states that he has been excessively bloated with abdominal distention, discomfort with causes him to have shortness of breath. Patient states that he had COVID 3 weeks ago associated with pneumonia and was admitted to [facility]. Patient also complains of rectal bleeding since 2 weeks every time he has a bowel movement which is approximately 5 to 6 times a day. Who was diagnosed with colon cancer 2 years ago, and denied colon surgery and chemotherapy. Patient states he has lost weight 5 lb he is in couple of months. Patient states that he did not use home oxygen before COVID diagnosis but now is using oxygen at home. Patient is admitted for further management Past surgical history: Laparotomy, the patient could not mention the reason Family history: Reviewed, noncontributory Personal history: Smoked 2 pack a week but quit 3 years ago, drinks occasionally, denies drug use Lives with: Family PCP: Dr. Rebolledo Brief history of hospitalization: Patient came in with acute intractable abdominal pain due to colorectal cancer and GI bleed. He also has chronic gastritis and we started him on IV Protonix. A CT abdomen pelvis was done which showed no acute abnormalities identified in the abdominal pelvis, moderate hiatal hernia. The ultrasound was done which showed no evidence of gallstones acute cholecystitis. Patient was given IV fluids and pain management with Tylenol, Geff and morphine. For shortness of breath, breathing treatments with albuterol and ipratropium bromide was given PRN. For asymptomatic bacteriuria he was encouraged hydration and monitored for symptoms of UTI. I discussed at length over 20 minutes during discharge with the patient regarding his colorectal carcinoma, and all questions and queries were answered. Patient has been advised to follow up outpatient with his primary care physician for referral with GI and surgical team. He communicated understanding. Patient is now stable and has no abdominal pain so we are discharging him and have given him furosemide 40 mg for the trace pleural effusion and pulmonary vascular congestion and edema seen in CT. Patient is to follow up at [place] [facility] within a week. General Appearance: Alert, Oriented X3, Cooperative, Not in acute distress HEENT: Atraumatic, Mucous membranes moist/pink , on 1 L of oxygen via nasal cannula Respiratory: Clear to auscultation, Normal air movement, No added sounds Cardiovascular: Regular rate, Normal S1, Normal S2, No murmurs Abdominal: Active bowel sounds, Soft, no distention, no tenderness Extremities: No edema, Normal pulses, No tenderness/swelling Skin: No Significant rash, except past surgical scars Neuro: Normal speech, sensorimotor deficits none Psych/Mental Status: Mental status NL, Mood NL Nurse was there as ship cleaner during examination Operations or Procedures PROCEDURE(s): CXRP - CHEST PORTABLE REASON: sob IMPRESSION: Diffuse interstitial thickening throughout both lungs, likely at least in part representing fibrosis. Superimposed vascular congestion or other processes are not excluded. Exam: CT CT AB PEL WO CON-NO ORAL OR IV History: h/o colon cancer, bloating IMPRESSION: 1. No acute abnormalities identified in the abdomen or pelvis. 2. Moderate hiatal hernia. 3. Extensive bibasilar fibrotic change and septal thickening with atelectasis and moderate patchy infiltrate. Radiation optimization: All CT scans at this facility use at least one of these dose optimization techniques: automated exposure control mA and/or kV adjustment per patient size (includes targeted exams where dose is matched to clinical indication) or iterative reconstruction. PROCEDURE(s): LIVUS - LIVER REASON: gi bleed IMPRESSION: No sonographic evidence of gallstones or acute cholecystitis. ORDERING PHYSICIAN: REJI PONCE MD PROCEDURE(s): ABPLIV - CT AB PEL WITH IV CON ONLY IMPRESSION: Rectal/anal wall masslike thickening with luminal narrowing. Recommend GI consultation to further evaluate exclude any rectal/ anal neoplasm Bibasilar pulmonary airspace consolidation. Bilateral pulmonary reticular changes, left lung bronchiectatic/cystic changes which appear more pronounced than on prior exam examination and can be sequela of interstitial lung disease /chronic lung disease, infectious etiology. Correlate clinically. Recommend pulmonology consultation. Dedicated CT chest also recommended to fully evaluate. Aortic atherosclerotic disease. 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 Hiatal hernia. Other findings as described. PROCEDURE(s): CXR1 - CHEST XRAY 1 VIEW REASON: Possible COPD IMPRESSION: Cardiomegaly with pulmonary venous congestion, edema, and trace left-sided pleural effusion. Condition at Discharge: Stable Final Diagnosis/Problems List #Acute intractable abdominal pain due to colorectal cancer #GI bleed due to above #Chronic Gastritis # chronic hypoxic respiratory failure status post denied any infection, now developing fibrosis # interstitial lung disease, UIP pattern # questionable Gram-positive/Gram-negative community acquired pneumonia # sepsis due to questionable pneumonia, other causes not ruled out yet # Asymptomatic bacteriuria # 1cm , pulmonary nodule, seen on 11/01/2024 CT imaging done outpatient, record brought by # GERD # small hiatal hernia # ex-smoker # COPD, no exacerbation # Dyslipidemia # Hyperglycemia, ruled out type 2 diabetes mellitus,prediabetic # Moderate hiatal hernia. Discharge Disposition: Home Discharge Instruct/Medications Diet: Consistent carbohydrate, Cardiac 2g Na,low cholest Activity: No Restrictions, As Tolerated Follow Up/Referral: Follow up with PCP in 10 days Follow up with [place] clinic in 7 days Medications: As per EMR Scheduled Artificial Tear Solution (Artificial Tears), 1 DROP EACHEYE QID Atorvastatin Calcium (Atorvastatin Calcium), 40 MG PO HS Cholecalciferol (Vitamin D-[address]), 1,000 UNIT PO DAILY Furosemide (Lasix), 40 MG PO DAILY Discharge Statement: "Patient was advised to return to the ER or call 911 if any headaches, dizziness, shortness of breath, chest pain, abdominal pain, bleeding, fevers, or worsening of medical condition. Patient was counseled about treatment plan, medications, possible side effects, patientverbalized understanding. All questions were answered to the best of my ability. This discharge took greater then 30 minutes in planning, reviewing documentation, counseling the patient, and discussing with other team members." ASSESSMENT ASSESSMENT Assessment #Acute intractable abdominal pain due to colorectal cancer #GI bleed due to above Visit Coding STANDARD RES Billing Provider: RAMYA MCCORD MD Date of Service if different f: Apr 22, 2025 Common Visit Codes: 11585-MSE/OBS DISCH DAY >30min KEVIN HUNT RESIDENT Apr 22, 2025 16:56 RAMYA MCCORD MD Apr 22, 2025 23:29
[2025-04-22] MEDS: PANTOPRAZOLE 40 MG TAB PO ONE (22:00)
[2025-04-23] VITALS (7 sets, daily range): BP systolic 111–128; BP diastolic 70–82; PULSE 68–74; RESP 16–20; TEMP 98–98.8; O2SAT 92–99
--- NOTE | 2025-04-24 12:21 | ECG ---
[facility] Test Date: 2025-04-20 Test Time: 14:53:40 Pat Name: REGINE WRIGHT Department: ED Room: 0296 A Gender: M Mold Press Operator: MARYLOU : 1950 Requested By: REJI PONCE Order Number: [id number] Reading MD: Ricardo Rodriguez Measurements Intervals [place] Rate: 93 P: 15 FL: 159 QRS: 8 QRSD: 86 T: 4 QT: 340 QTc: 423 Interpretive Statements Sinus rhythm Abnormal R-wave progression, early transition Left ventricular hypertrophy Electronically Signed On 04-24-2025 15:21:22 PST by Ricardo Rodriguez Please click the below link to view image of tracing.
== END 2025-04-23 14:16 | disposition home or self-care (01) | DRG 871 ==
LOC: ER 14:43 → OVERFLOW 22:15 → WEST WING 23:52
PROVIDERS: ADMIT Internal Medicine; ATTEND Internal Medicine
DX: A41.59 Other Gram-negative sepsis (principal); J15.69 Pneumonia due to other Gram-negative bacteria; J15.9 Unspecified bacterial pneumonia; C19 Malignant neoplasm of rectosigmoid junction; J44.0 Chronic obstructive pulmonary disease with (acute) lower respiratory infection; J96.11 Chronic respiratory failure with hypoxia; J84.10 Pulmonary fibrosis, unspecified; K21.9 Gastro-esophageal reflux disease without esophagitis; E78.5 Hyperlipidemia, unspecified; K29.50 Unspecified chronic gastritis without bleeding; K44.9 Diaphragmatic hernia without obstruction or gangrene; R73.9 Hyperglycemia, unspecified; J47.9 Bronchiectasis, uncomplicated; Z87.891 Personal history of nicotine dependence; Z79.899 Other long term (current) drug therapy; G89.3 Neoplasm related pain (acute) (chronic)
CPT/HCPCS: 36415; 71045; 74177; 80048; 80053; 81001; 82746; 83036; 85025; 85610; 85730; 87081; 87426; 87804; 93005; G0378; J2470